=== PATIENT | female | born 1950 | race Caucasian/White ===

== ENCOUNTER 2016-12-09 12:24 | Inpatient (IN) | payer BC ==
[2016-12-09] MEDS ORDERED: SODIUM CHLORIDE 0.9% 1,000 ML IV STA ×2 (13:22)
[2016-12-09] MEDS ORDERED: ONDANSETRON 4 MG/2 ML VIAL IVP STA (13:22)
--- NOTE | 2016-12-09 13:42 | ED ---
Nausea/Vomiting/Diarrhea HPI - General Chief complaint: Nausea/Vomiting/Diarrhea Stated complaint: dehydrated Time Seen by Provider: 12/09/16 13:15 Source: patient, family Mode of arrival: wheelchair Limitations: no limitations - History of Present Illness Initial comments: This 66-year-old white female presents complaining of nausea as well as vomiting. She states that she cannot swallow, eat, or drink. This is been present for approximately 5 days. She does feel dehydrated. She currently is undergoing treatment for cancer. She was diagnosed with breast cancer possibly 6 years ago. She developed some bone metastases over the past year. She is undergone chemotherapy and is currently undergoing radiation therapy. She has had similar symptoms twice in the past. She's had 3 EGDs. She states that one of them was done here and the others were done at [facility]. She states that they had a hard time passing the scope at [facility]. She had radiation therapy just this morning. She denies any abdominal pain or distention, fever, or chills. He cancer may have spread near her pancreas as well. She tried Zofran from home without any relief. No other complaints or modifying factors. - Related Data Home Medications Medication Instructions Recorded Confirmed Dexamethasone [Dexamethasone 2 mg PO BID 12/09/16 12/09/16 Intensol] Dexamethasone [Dexamethasone 10 mg PO QAM 12/09/16 12/09/16 Intensol] Ondansetron [Zofran ODT] 8 mg PO Q8HR PRN 12/09/16 12/09/16 Allergies Allergy/AdvReac Type Severity Reaction Status Date / Time acyclovir AdvReac Swelling Verified 12/09/16 12:25 morphine AdvReac Nausea & Verified 12/09/16 12:25 Vomiting sulfamethazine AdvReac Anaphylaxis Verified 12/09/16 12:25 Review of Systems ROS Statement: Those systems with pertinent positive or pertinent negative responses have been documented in the HPI. ROS Other: All systems not noted in ROS Statement are negative. Past Medical History Past Medical History: Cancer Additional Past Medical History / Comment(s): BREAST CA WITH BONE METS, SHINGLES History of Any Multi-Drug Resistant Organisms: None Reported Additional Past Surgical History / Comment(s): LEFT MASTECTOMY Past Anesthesia/Blood Transfusion Reactions: No Reported Reaction Past Psychological History: No Psychological Hx Reported Smoking Status: Never smoker Past Alcohol Use History: None Reported Past Drug Use History: None Reported - Past Family History Mother Additional Family Medical History / Comment(s): Has one kidney Father Family Medical History: Myocardial Infarction ([place]) General Exam - General Exam Comments Initial Comments: GENERAL: The patient is well nourished and well hydrated. VITAL SIGNS: Heart rate, blood pressure, respiratory rate reviewed as recorded in nurse's notes. EYES: Pupils are round and reactive. Extraocular movements are intact. No conjunctival / lid redness or swelling. There may be some slight icterus present. ENT: No external evidence of injury, swelling, or ecchymosis. Airway is patent. Throat is clear. Mucous membranes are dry. NECK: Nontender. No swelling or evidence of injury. No subcutaneous emphysema. Trachea is midline. No thyroid mass. HEART: Regular rate and rhythm. Good peripheral pulses. LUNGS/CHEST: Breath sounds clear and equal bilaterally. No rales, rhonchi, or wheezes. No ecchymosis, subcutaneous emphysema, or tenderness. Medical large is present in the right upper chest. ABDOMEN: Abdomen soft without tenderness. No palpable masses or organomegaly. No peritoneal signs. No abdominal wall swelling or ecchymosis. EXTREMITIES: No extremity tenderness. Normal muscle tone and function. No thoracolumbar tenderness. NEUROLOGIC: Sensation is grossly intact. Cranial nerve exam reveals face is symmetrical, tongue is midline, speech is clear. SKIN: No abrasions or ecchymosis is noted. No induration or masses noted. Patient appears somewhat pale with possible mild jaundice. PSYCHIATRIC: Alert and oriented. Appropriate behavior and judgment. Limitations: no limitations Course Vital Signs 12/09/16 12/09/16 12:26 13:15 Temperature 97.1 F L Pulse Rate 111 H 113 H Respiratory 16 14 Rate Blood Pressure 127/66 113/60 O2 Sat by Pulse 98 96 Oximetry Medical Decision Making - Medical Decision Making The patient was seen and examined. All diagnostics were reviewed. IV hydration therapy is started and she receives 8 mg of Zofran as well. The EKG is done and shows a sinus tachycardia at a rate of 111. There is some nonspecific lateral ST-T wave changes noted. The VA interval is 144, QRS duration is 72, and the QTc interval is 476. The labs came back showing multiple abnormalities including a severe elevation of the pancreatic enzymes. Lipase was 4458. The bilirubin also is significantly elevated at 8.7. The alk phos is also elevated. The creatinine is mildly elevated. She is mildly dehydrated with a CO2 of 19. Old records were reviewed but there is not much in regard to definitive pathology in regards to her pancreas. They do relate that there was a mass in or around the pancreas at one point but they thought that this was improving. It is felt as though she benefit from admission to the hospital for further subspecialty consultations and further workup. She is feeling improved on recheck. She denies any abdominal pain or need for any pain medications. The case is discussed with Dr. Chavez and he is agreeable to admission with an oncology consult. - Lab Data Result diagrams: 12/09/16 13:30 12/09/16 13:30 Lab Results 12/09/16 12/09/16 12/09/16 Range/Units 13:30 13:30 13:30 WBC 10.1 (3.8-10.6) k/uL RBC 3.42 L (3.80-5.40) m/uL Hgb 11.8 (11.4-16.0) gm/dL Hct 36.2 (34.0-46.0) % MCV 105.9 H (80.0-100.0) fL MCH 34.6 (25.0-35.0) pg MCHC 32.7 (31.0-37.0) g/dL RDW 15.6 H (11.5-15.5) % Plt Count 401 (150-450) k/uL Neutrophils % 84 % Lymphocytes % 6 % Monocytes % 8 % Eosinophils % 0 % Basophils % 0 % Neutrophils # 8.4 H (1.3-7.7) k/uL Lymphocytes # 0.6 L (1.0-4.8) k/uL Monocytes # 0.8 (0-1.0) k/uL Eosinophils # 0.0 (0-0.7) k/uL Basophils # 0.0 (0-0.2) k/uL Macrocytosis Moderate PT 11.6 (9.0-12.0) sec INR 1.2 (<1.1) APTT 24.1 (22.0-30.0) sec Sodium 133 L (137-145) mmol/L Potassium 3.6 (3.5-5.1) mmol/L Chloride 96 L (98-107) mmol/L Carbon Dioxide 19 L (22-30) mmol/L Anion Gap 18 mmol/L BUN 22 H (7-17) mg/dL Creatinine 1.29 H (0.52-1.04) mg/dL Est GFR (MDRD) Af Amer 50 (>60 ml/min/1.73 sqM) Est GFR (MDRD) Non-Af 42 (>60 ml/min/1.73 sqM) Glucose 98 (74-99) mg/dL Calcium 7.5 L (8.4-10.2) mg/dL Total Bilirubin 8.7 H (0.2-1.3) mg/dL AST 186 H (14-36) U/L ALT 128 H (9-52) U/L Alkaline Phosphatase 698 H (38-126) U/L Total Protein 6.4 (6.3-8.2) g/dL Albumin 3.5 (3.5-5.0) g/dL Amylase 783 H* (30-110) U/L Lipase 4458 H (23-300) U/L Disposition Clinical Impression: Pancreatitis, Hepatic failure, Intractable nausea and vomiting, Dehydration, Bone metastases, Breast cancer, Acute kidney injury, Dysphagia Disposition: ADMITTED IP TO THIS [facility] Condition: Fair Time of Disposition: 14:44 Decision Date: 12/09/16 Decision Time: 14:45
[2016-12-09 13:46] LABS: Basophils % (A) 0 %; CH 34.6; CHCM 32.9; Eosinophils % (A) 0 %; HCT 36.2 % (34.0-46.0); HDW 2.47; HGB 11.8 gm/dL (11.4-16.0); Luc # (Auto) 0.13; Luc % (Auto) 1; Lymphocytes # (A) 0.6 k/uL (1.0-4.8); Lymphocytes % (A) 6 %; MCH 34.6 pg (25.0-35.0); MCHC 32.7 g/dL (31.0-37.0); MCV 105.9 fL (80.0-100.0); Macrocytosis Moderate; Mean Platelet Volume 7.6; Monocytes # (A) 0.8 k/uL (0-1.0); Monocytes % (A) 8 %; Neutrophils # (A) 8.4 k/uL (1.3-7.7); Neutrophils % (A) 84 %; RBC 3.42 m/uL (3.80-5.40); RDW 15.6 % (11.5-15.5); WBC 10.1 k/uL (3.8-10.6); WBC (Perox) 10.48
[2016-12-09 13:53] LABS: Calcium 7.5 mg/dL (8.4-10.2); Potassium 3.6 mmol/L (3.5-5.1); Total Bilirubin 8.7 mg/dL (0.2-1.3); Total Protein 6.4 g/dL (6.3-8.2)
[2016-12-09 13:56] LABS: INR 1.2 (<1.1); Partial Thromboplastin Time 24.1 sec (22.0-30.0); Prothrombin Time 11.6 sec (9.0-12.0)
[2016-12-09] MEDS ORDERED: NALOXONE 0.4 MG/ML 1 ML VIAL IV PRN (14:47)
[2016-12-09] MEDS ORDERED: RX INFO: IV CONTRAST WAS GIVEN 1 EACH MISC MISCELLANE PRN (14:51)
--- NOTE | 2016-12-09 15:29 | CT ---
EXAMINATION TYPE: CT abdomen pelvis wo con DATE OF EXAM: 12/09/2016 3:14 PM COMPARISON: NONE INDICATION: Pt states of vomiting. Hx of bone CA. DLP: 491 mGycm, Automated exposure control for dose reduction was used. CONTRAST: No IV contrast Study performed without Oral Contrast TECHNIQUE: Axial images were obtained from above the diaphragm to the pubic rami in the axial plane a t 5 mm thick sections. Reconstructed images are reviewed on the computer in the coronal plane. FINDINGS: Limited CT sections are obtained the lung bases. Small bilateral pleural effusions are present.. 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 CT ABDOMEN: Ascites is present within the abdomen. Liver: Multiple dilated bile ducts are present within the liver. Ascites is adjacent to the liver. Spleen: Normal. Ascites is adjacent to the spleen. Pancreas: Pancreatic duct is dilated discrete mass at the head of the pancreas is not identified. Adrenal glands: The adrenal glands are normal. Gallbladder: Prominent. Kidneys: No masses are evident. There is a right hydronephrosis. There may be a mild left hydronephro sis. No cysts are present. Aorta: Vascular calcification is within the aorta. Inferior vena cava: Normal. CT PELVIS: Loops of bowel within the abdomen and pelvis are normal. Appendix: Not visualized Urinary bladder: Normal. This is decompressed and somewhat limited evaluation. Genitourinary structures: Uterus is normal. Adnexal regions are clear. Osseous structures: Sclerotic areas are within the right ilium and within the right femur. Punctate s clerotic areas within the proximal left intertrochanteric region. There is a sclerotic vertebral body T12. Additional small sclerotic areas are within the lumbar vertebral bodies compatible with bone me tastases. Some sclerosis may be within the lower thoracic spine. Left rib 11 has increased density co mpatible sclerotic metastasis. IMPRESSIONS: 1. Small bilateral pleural effusions. 2. Ascites throughout the abdomen. 3. Multiple sclerotic metastases. 4. Right hydronephrosis and hydroureter. 5. Biliary dilatation and pancreatic duct dilatation. Discrete abnormalities not identified within th e pancreas. Additional workup however is recommended.
[2016-12-09] MEDS ORDERED: DEXAMETHASONE 2 MG TAB PO SCH (16:00)
[2016-12-09] MEDS: PANTOPRAZOLE 40 MG/10 ML VIAL IV SCH (17:03)
[2016-12-09 17:27] LABS: Bilirubin, Delta 3.3 mg/dL (0.0-0.2); Total Bilirubin 8.6 mg/dL (0.2-1.3)
[2016-12-09] MEDS: ONDANSETRON 4 MG/2 ML VIAL IVP PRN (18:39)
[2016-12-09] MEDS: DEXAMETHASONE SOD PHOSPHATE 4 MG/ML 1 ML VIAL IV SCH ×2 (18:39→23:58)
[2016-12-09 18:54] LABS: Appearance,Urine Cloudy (Clear); Bacteria,Urine Rare /hpf; Bilirubin,Urine 2+ (Negative); Glucose,Urine (UA) Negative (Negative); Ketones,Urine 2+ (Negative); Leukocyte Esterase,Urine Large (Negative); Mucus,Urine Few /hpf; Nitrite,Urine Positive (Negative); PH, Urine 5.5 (5.0-8.0); Particle Count 21216; Protein,Urine 1+ (Negative); RBC,Urine 3 /hpf (0-5); Specific Gravity,Urine 1.019 (1.001-1.035); Squamous Epithelial Cell,Urine 5 /hpf (0-4); UA Billing (MACRO vs. MICRO) MICRO; Urobilinogen,Urine <2.0 mg/dL (<2.0); WBC,Urine 170 /hpf (0-5)
[2016-12-09] MEDS: ACETAMINOPHEN IV (For NPO) 1,000 MG in EMPTY BAG 1 BAG IVPB PRN (22:56)
[2016-12-10] MEDS: SODIUM CHLORIDE 0.9% 1,000 ML IV SCH ×3 (00:01→20:57)
[2016-12-10] MEDS: DEXAMETHASONE SOD PHOSPHATE 4 MG/ML 1 ML VIAL IV SCH ×4 (06:12→23:55)
[2016-12-10 06:33] LABS: Basophils % (A) 0 %; CHCM 31.2; Eosinophils % (A) 0 %; HCT 32.3 % (34.0-46.0); HGB 10.3 gm/dL (11.4-16.0); Hypochromasia Slight; Luc # (Auto) 0.02; Luc % (Auto) 0; Lymphocytes # (A) 0.2 k/uL (1.0-4.8); Lymphocytes % (A) 4 %; MCH 34.9 pg (25.0-35.0); MCHC 31.9 g/dL (31.0-37.0); MCV 109.3 fL (80.0-100.0); Macrocytosis Marked; Mean Platelet Volume 6.9; Monocytes # (A) 0.2 k/uL (0-1.0); Monocytes % (A) 3 %; Neutrophils # (A) 6.2 k/uL (1.3-7.7); Neutrophils % (A) 93 %; RBC 2.96 m/uL (3.80-5.40); RDW 15.9 % (11.5-15.5); WBC 6.6 k/uL (3.8-10.6); WBC (Perox) 6.88
[2016-12-10 06:51] LABS: Calcium 6.7 mg/dL (8.4-10.2); Total Protein 5.9 g/dL (6.3-8.2)
[2016-12-10] MEDS ORDERED: DEXAMETHASONE 2 MG TAB PO SCH (09:00)
[2016-12-10] MEDS: PANTOPRAZOLE 40 MG/10 ML VIAL IV SCH (09:12)
[2016-12-10] MEDS: ENOXAPARIN 40 MG/0.4 ML SYRINGE SQ SCH (09:12)
--- NOTE | 2016-12-10 16:08 | P.CONS ---
History of Present Illness - Reason for Consult Consult date: 12/10/16 metastatic breast cancer Requesting physician: Nathaniel Kelsey - Chief Complaint dysphagia, anorexic, dehydration - History of Present Illness Pt is a very pleasant female pt last seen by Dr. Coe Nov 2014. She was diagnosed with stage IIIC, ER/SD+, HER2/CHIDI negative, left breast cancer in March 2010.She had a left mastectomy and axillary nodes dissection. She received adjuvant systemic treatment per [id number]-B46 trial and had 6 cycles of cytoxan, adriamycin and taxol and completed that in August 2010. She had adjuvant radiation therapy to left chest wall. She was started on arimidex 11/2010. Mammogram 08/22/2012 was normal, bone density in 07/2012 showed osteopenia and osteoporosis in the pelvis. Mammograms 10/11 and 12/13 were negative, bone density done on 12/11/2014 revealed persistent osteopenia. Pt then moved to [place], then moved back last year but has been kirstie treated at [facility]. She is not sure of all the treatments she has had but most recently she has been on weekly chemo (when prompted she did seem to be familiar with taxol), last dose about 1 mo ago. She was evaluated at [facility] in the last 1-2 weeks and it sounds as thoug that is when she was diagnosed with brain mets. She wants her treatment closer to home so she was seen by Rad Onc to start WBRT and started Wednesday. She was having dysphagia that was preventing her from taking meds and even managing her own secretions, also noted was left ptosis without vision loss. Due to concerns for dehydration she was sent from radiation to the hospital for admission, she has significantly elevated amylase and lipase without signs of symptoms of pancreatitis, no nausea or abd pain. Pt is comfortable this AM, she did tolerate ice chips, she states that she is swallowing much better, no spitting up of oral secretions. Review of Systems All systems: negative Constitutional: Reports as per HPI Past Medical History Past Medical History: Cancer Additional Past Medical History / Comment(s): BREAST CA WITH BONE METS- PT STATED SHE HAD CHEMO 3 OR 4 WEEKS AGO NOT SURE WHEN DUE NEXT, AND HAD FIRST RADITATION [place] 12-09-16, SHINGLES MAY 2016 History of Any Multi-Drug Resistant Organisms: None Reported Additional Past Surgical History / Comment(s): LEFT MASTECTOMY, POWER PORT IMPLANTED, multiple esophageal tests to see about stent placements per patient [facility] said they could not put one in due to severity esophagus narrowing Past Anesthesia/Blood Transfusion Reactions: No Reported Reaction Past Psychological History: No Psychological Hx Reported Smoking Status: Never smoker Past Alcohol Use History: None Reported Past Drug Use History: None Reported - Past Family History Mother Additional Family Medical History / Comment(s): Has one kidney Father Family Medical History: Myocardial Infarction ([place]) Medications and Allergies Home Medications Medication Instructions Recorded Confirmed Type Ondansetron [Zofran ODT] 8 mg PO Q8HR PRN 12/09/16 12/09/16 History Allergies Allergy/AdvReac Type Severity Reaction Status Date / Time acyclovir AdvReac Swelling Verified 12/09/16 12:25 morphine AdvReac Nausea & Verified 12/09/16 12:25 Vomiting sulfamethazine AdvReac Anaphylaxis Verified 12/09/16 12:25 EGGS AdvReac Diarrhea Uncoded 12/09/16 19:01 Physical Exam Vitals: Vital Signs Temp Pulse Resp BP Pulse Ox 12/10/16 07:00 97.7 F 110 H 16 124/82 96 12/09/16 23:00 97.0 F L 109 H 16 103/61 95 12/09/16 16:49 97.1 F L 102 H 18 110/62 98 Intake and Output 12/09/16 12/10/16 12/10/16 22:59 06:59 14:59 Intake Total 400 1150 Balance 400 1150 Intake: IV 400 1150 Sodium Chloride 0.9% 1, 400 1100 000 ml @ 100 mls/hr IV . Q10H STA Rx#:[id number] cefTRIAXone 1,000 mg In 50 Sodium Chloride 0.9% 50 ml @ 100 mls/hr IVPB Q24HR STEPHANIE Rx#:[id number] Other: Voiding Method Toilet # Voids 1 Weight 47.627 kg Patient Weight 12/11/16 06:59 Weight 47.627 kg - Constitutional General appearance: average body habitus, cooperative, no acute distress - EENT Eyes: ptosis (left eye) ENT: no hard of hearing, hearing grossly normal, no NA/AT, normal oropharynx, no other, no pharyngeal erythema, no thrush, no tonsillar exudates, no tonsillar swelling - Neck Neck: no lymphadenopathy - Respiratory Respiratory: bilateral: CTA - Cardiovascular Rhythm: regular Heart sounds: normal: S1, S2 leg Peripheral Edema: bilateral: None - Gastrointestinal General gastrointestinal: no absent bowel sounds, no decreased bowel sounds, no distended, no hepatomegaly, no hyperactive bowel sounds, normal bowel sounds, no organomegaly, no rigid, no scaphoid, soft, no splenomegaly, no tenderness, no umbilical hernia, no ventral hernia - Integumentary Integumentary: pale - Musculoskeletal Musculoskeletal: strength equal bilaterally - Psychiatric Psychiatric: A&O x's 3, appropriate affect, intact judgment & insight Results CBC & Chem 7: 12/10/16 06:10 12/10/16 06:10 Labs: Abnormal Lab Results - Last 24 Hours (Table) 12/09/16 12/10/16 12/10/16 Range/Units 18:10 06:10 06:10 RBC 2.96 L (3.80-5.40) m/uL Hgb 10.3 L (11.4-16.0) gm/dL Hct 32.3 L (34.0-46.0) % MCV 109.3 H (80.0-100.0) fL RDW 15.9 H (11.5-15.5) % Lymphocytes # 0.2 L (1.0-4.8) k/uL Carbon Dioxide 13 L (22-30) mmol/L BUN 26 H (7-17) mg/dL Creatinine 1.34 H (0.52-1.04) mg/dL Glucose 109 H (74-99) mg/dL Calcium 6.7 L (8.4-10.2) mg/dL Total Bilirubin 8.0 H (0.2-1.3) mg/dL AST 155 H (14-36) U/L ALT 108 H (9-52) U/L Alkaline Phosphatase 561 H (38-126) U/L Total Protein 5.9 L (6.3-8.2) g/dL Albumin 3.2 L (3.5-5.0) g/dL Amylase 687 H* (30-110) U/L Lipase 3256 H (23-300) U/L Urine Appearance Cloudy H (Clear) Urine Protein 1+ H (Negative) Urine Ketones 2+ H (Negative) Urine Nitrate Positive H (Negative) Urine Bilirubin 2+ H (Negative) Ur Leukocyte Esterase Large H (Negative) Urine WBC 170 H (0-5) /hpf Ur Squamous Epith Cells 5 H (0-4) /hpf Urine Bacteria Rare H (None) /hpf Hyaline Casts 3 H (0-2) /lpf Urine Mucus Few H (None) /hpf CT scan - abdomen: report reviewed CT scan - pelvis: report reviewed Assessment and Plan (1) Metastatic breast cancer Narrative/Plan: [facility] will be contacted for pt history of treatment for the last year as we will need to review before planning any systemic treatment. Pt cannot have chemo while on radiation at this time anyway. She will have a follow up appt for after she completes radiation. Status: Chronic (2) Brain metastases Narrative/Plan: Cont radiation under the care of Dr. Nicholson. Steroids are IV for now and will continue with eventual taper after radiation complete. Swallow evalu ordered as pt is stating less dysphagia. Will convert to oral once pt passes swallow eval, will consider ice chips/clear fluids if ok. Status: Chronic (3) Acute kidney injury Status: Acute (4) Pancreatitis Narrative/Plan: Asymptomatic Status: Acute (5) Hepatic failure Status: Acute Plan: Pt believes that there is tumor in the abdomen, [facility] paperwork has been sent and will be reviewed. GI and Urology consults may be appropriate for evaluation of pt, procedures to relive mechanical obstruction from malignancy may be necessary. Will review [facility] notes, further recommendations to follow.
--- NOTE | 2016-12-10 16:13 | P.HPIM ---
History of Present Illness H&P Date: 12/10/16 Chief Complaint: Dysphagia 65-year-old female with history of breast cancer with metastases to the bones and recent diagnosis of metastases to the brain comes in the hospital with complains of dysphagia. Patient was recently evaluated at [facility] was told regarding her brain metastases was deferred to have radiation therapy. Patient underwent radiation therapy today. Patient underwent EGD recently without any acute obstruction. Over the last few days patient was noted to have some dysphagia which she states she is not able to tolerate even liquids and solids. Patient has been on steroids for treatment of vasogenic edema up for metastatic lesions. Patient denies having any headaches chills, nausea, abdominal pain, diarrhea. Patient does have a left droopy eye and gets tearful multiple times during our conversation. Review of Systems All systems: negative (As noted in HPI) Past Medical History Past Medical History: Cancer Additional Past Medical History / Comment(s): BREAST CA WITH BONE METS- PT STATED SHE HAD CHEMO 3 OR 4 WEEKS AGO NOT SURE WHEN DUE NEXT, AND HAD FIRST RADITATION [place] 12-09-16, [place] MAY 2016 History of Any Multi-Drug Resistant Organisms: None Reported Additional Past Surgical History / Comment(s): LEFT MASTECTOMY, POWER PORT IMPLANTED, multiple esophageal tests to see about stent placements per patient [facility] said they could not put one in due to severity esophagus narrowing Past Anesthesia/Blood Transfusion Reactions: No Reported Reaction Past Psychological History: No Psychological Hx Reported Smoking Status: Never smoker Past Alcohol Use History: None Reported Past Drug Use History: None Reported - Past Family History Mother Additional Family Medical History / Comment(s): Has one kidney Father Family Medical History: Myocardial Infarction ([place]) Medications and Allergies Home Medications Medication Instructions Recorded Confirmed Type Ondansetron [Zofran ODT] 8 mg PO Q8HR PRN 12/09/16 12/09/16 History Allergies Allergy/AdvReac Type Severity Reaction Status Date / Time acyclovir AdvReac Swelling Verified 12/09/16 12:25 morphine AdvReac Nausea & Verified 12/09/16 12:25 Vomiting sulfamethazine AdvReac Anaphylaxis Verified 12/09/16 12:25 EGGS AdvReac Diarrhea Uncoded 12/09/16 19:01 Physical Exam Vitals: Vital Signs Temp Pulse Resp BP Pulse Ox 12/10/16 15:00 107 H 18 128/73 95 12/10/16 07:00 97.7 F 110 H 16 124/82 96 12/09/16 23:00 97.0 F L 109 H 16 103/61 95 12/09/16 16:49 97.1 F L 102 H 18 110/62 98 Intake and Output 12/10/16 12/10/16 12/10/16 06:59 14:59 22:59 Intake Total 1150 1330 Balance 1150 1330 Intake: IV 1150 800 Sodium Chloride 0.9% 1, 1100 800 000 ml @ 100 mls/hr IV . Q10H STA Rx#:[id number] cefTRIAXone 1,000 mg In 50 Sodium Chloride 0.9% 50 ml @ 100 mls/hr IVPB Q24HR STEPHANIE Rx#:[id number] Intake, IV Titration 50 Amount cefTRIAXone 1,000 mg In 50 Sodium Chloride 0.9% 50 ml @ 100 mls/hr IVPB Q24HR STEPHANIE Rx#:[id number] Oral 480 Other: Voiding Method Toilet Toilet # Voids 4 Weight 47.627 kg Patient Weight 12/11/16 06:59 Weight 47.627 kg Gen Appearance alert oriented 3 in no distress Lungs currently clear to auscultation Mouth thrush appreciated Abdomen is soft nontender no organomegaly Neurologically moves all 4 activities. Left-sided facial droop is appreciated. Psychiatric patient gets tearful multiple times during my examination Heart regular rate and rhythm no murmurs appreciated Results CBC & Chem 7: 12/10/16 06:10 12/10/16 06:10 Labs: Abnormal Lab Results - Last 24 Hours (Table) 12/09/16 12/10/16 12/10/16 Range/Units 18:10 06:10 06:10 RBC 2.96 L (3.80-5.40) m/uL Hgb 10.3 L (11.4-16.0) gm/dL Hct 32.3 L (34.0-46.0) % MCV 109.3 H (80.0-100.0) fL RDW 15.9 H (11.5-15.5) % Lymphocytes # 0.2 L (1.0-4.8) k/uL Carbon Dioxide 13 L (22-30) mmol/L BUN 26 H (7-17) mg/dL Creatinine 1.34 H (0.52-1.04) mg/dL Glucose 109 H (74-99) mg/dL Calcium 6.7 L (8.4-10.2) mg/dL Total Bilirubin 8.0 H (0.2-1.3) mg/dL AST 155 H (14-36) U/L ALT 108 H (9-52) U/L Alkaline Phosphatase 561 H (38-126) U/L Total Protein 5.9 L (6.3-8.2) g/dL Albumin 3.2 L (3.5-5.0) g/dL Amylase 687 H* (30-110) U/L Lipase 3256 H (23-300) U/L Urine Appearance Cloudy H (Clear) Urine Protein 1+ H (Negative) Urine Ketones 2+ H (Negative) Urine Nitrate Positive H (Negative) Urine Bilirubin 2+ H (Negative) Ur Leukocyte Esterase Large H (Negative) Urine WBC 170 H (0-5) /hpf Ur Squamous Epith Cells 5 H (0-4) /hpf Urine Bacteria Rare H (None) /hpf Hyaline Casts 3 H (0-2) /lpf Urine Mucus Few H (None) /hpf Thrombosis Risk Factor Assmnt - Choose All That Apply Any of the Below Risk Factors Present?: Yes Other Risk Factors: Yes Each Risk Factor Represents 2 Points: Age 61-74 years Other congenital or acquired thrombophilia - If yes, enter type in comment: No Thrombosis Risk Factor Assessment Total Risk Factor Score: 2 Thrombosis Risk Factor Assessment Level: Low Risk Assessment and Plan Plan: #1 metastatic breast cancer #2 dysphagia #3 acute pancreatitis likely obstructive in nature #4 oral thrush with likely esophagitis from Melinda albicans #5 left sided facial droop likely secondary to lesion Plan Patient underwent radiation. On IV steroids. Diflucan 200 mg IV piggyback will be started. We'll trend enzymes if patient's bilirubin increases there might be a role for ERCP. There is no overt mass noted at the head of the pancreas. Continue ongoing care
[2016-12-10] MEDS: ACETAMINOPHEN IV (For NPO) 1,000 MG in EMPTY BAG 1 BAG IVPB PRN (17:24)
[2016-12-10] MEDS: FLUCONAZOLE IN NACL,ISO-OSM 200 MG in SALINE 1 100ML.BAG IVPB SCH (18:11)
[2016-12-10] MEDS: ONDANSETRON 4 MG/2 ML VIAL IVP PRN (20:33)
[2016-12-11] MEDS: ONDANSETRON 4 MG/2 ML VIAL IVP PRN ×6 (01:38→23:21)
[2016-12-11] MEDS: DEXAMETHASONE SOD PHOSPHATE 4 MG/ML 1 ML VIAL IV SCH ×4 (05:39→23:21)
[2016-12-11] MEDS: SODIUM CHLORIDE 0.9% 1,000 ML IV SCH (05:43)
[2016-12-11] MEDS: PANTOPRAZOLE 40 MG/10 ML VIAL IV SCH (08:54)
[2016-12-11] MEDS: ENOXAPARIN 40 MG/0.4 ML SYRINGE SQ SCH (08:54)
--- NOTE | 2016-12-11 10:07 | P.CONS ---
History of Present Illness - Reason for Consult Consult date: 12/11/16 ERCP evaluation Requesting physician: Arnol Chavez - History of Present Illness 66-year-old female with past medical history of metastatic breast cancer to bone and brain with recent radiation treatment at [facility] presents with worsening nausea vomiting with elevated transaminases,hyperbilirubinemia/ jaundice. She has had multiple EGDs at [facility] without intervention. Consultation requested for ERCP evaluation. Computed tomography scan abdomen and pelvis reported ascites without gallstones. Dilated pancreatic duct as well as intrahepatic biliary ductal dilatation without discrete pancreatic mass. Patient did not notice herself to be yello/jaundice or passing dark-colored urine until she was admitted. Denies acholic stools. Admission lipase 4458 currently 3256. Amylase 783 currently 687. Despite elevated pancreatic enzymes she is without abdominal pain. Denies fever or chills. No history of pancreatitis or hepatitis. Total bilirubin 8.6 currently 8.0. AST 186 currently 155. ALT 128 currently 108. Alkaline phosphatase 690 currently 561. Conjugated bilirubin 4.2. Unconjugated 1.1. When reviewing prior medical records liver chemistries within normal limits May 2016. Review of Systems All systems: negative (See HPI) Past Medical History Past Medical History: Cancer Additional Past Medical History / Comment(s): BREAST CA WITH BONE METS- PT STATED SHE HAD CHEMO 3 OR 4 WEEKS AGO NOT SURE WHEN DUE NEXT, AND HAD FIRST RADITATION [place] 12-09-16, SHINGLJAMEL MAY 2016 History of Any Multi-Drug Resistant Organisms: None Reported Additional Past Surgical History / Comment(s): LEFT MASTECTOMY, POWER PORT IMPLANTED, multiple esophageal tests to see about stent placements per patient [facility] said they could not put one in due to severity esophagus narrowing Past Anesthesia/Blood Transfusion Reactions: No Reported Reaction Past Psychological History: No Psychological Hx Reported Smoking Status: Never smoker Past Alcohol Use History: None Reported Past Drug Use History: None Reported - Past Family History Mother Additional Family Medical History / Comment(s): Has one kidney Father Family Medical History: Myocardial Infarction ([place]) Medications and Allergies Home Medications Medication Instructions Recorded Confirmed Type Ondansetron [Zofran ODT] 8 mg PO Q8HR PRN 12/09/16 12/09/16 History Allergies Allergy/AdvReac Type Severity Reaction Status Date / Time acyclovir AdvReac Swelling Verified 12/09/16 12:25 morphine AdvReac Nausea & Verified 12/09/16 12:25 Vomiting sulfamethazine AdvReac Anaphylaxis Verified 12/09/16 12:25 EGGS AdvReac Diarrhea Uncoded 12/09/16 19:01 Physical Exam Vitals: Vital Signs Temp Pulse Resp BP Pulse Ox 12/10/16 22:41 97 F L 106 H 18 129/80 95 12/10/16 15:00 107 H 18 128/73 95 Intake and Output 12/10/16 12/11/16 12/11/16 22:59 06:59 14:59 Intake Total 700 800 Balance 700 800 Intake: IV 400 Sodium Chloride 0.9% 1, 400 000 ml @ 100 mls/hr IV . Q10H STA Rx#:[id number] Intake, IV Titration 800 Amount Sodium Chloride 0.9% 1, 800 000 ml @ 100 mls/hr IV . Q10H STEPHANIE Rx#:[id number] Oral 300 Other: Voiding Method Toilet # Voids 1 1 General appearance: The patient is alert, oriented, in no acute distress. Jaundice. HET: Head is normocephalic and atraumatic. Hair thinly distributed sparse. Left eye with mild ptosis. Pupils are equal and reactive. Sclerae icterus. Oropharynx is clear without lesions. Neck: Supple without lymphadenopathy. Trachea midline. Heart: S1 S2. Regular rate and rhythm. Lungs: No crackles or wheezes are heard. Mediport. Abdomen: Soft, nontender, nondistended with bowel sounds. No peritoneal signs. No palpable organomegaly or masses. Extremities: Normal skin color and turgor. No cyanosis, rash, ulceration, clubbing, or edema. Radial and pedal pulses are 2/4 bilaterally. Neurological: No focal deficits. Strength and sensation are grossly intact. Results CBC & Chem 7: 12/10/16 06:10 12/10/16 06:10 CT scan - abdomen: report reviewed CT scan - pelvis: report reviewed (Reviewed by Dr. Roca) Assessment and Plan (1) Obstructive jaundice Narrative/Plan: 66-year-old female with metastatic breast cancer to bone and brain presents to intractable nausea vomiting elevated transaminases, pancreatic enzymes and jaundice consistent with obstructive jaundice and pancreatitis even though she is without abdominal pain. Etiology of pancreatitis and jaundice could be related to malignancy however stricture or gallstone cannot be entirely excluded. Computed tomography scan abdomen and pelvis reported dilated pancreatic and intrahepatic biliary ductal dilatation without cholelithiasis or discrete pancreatic mass. Status: Acute (2) Brain metastases Status: Chronic Plan: 1. For now supportive measures and allow pancreatic enzymes to improve. ERCP consideration once pancreatic enzymes have resolved. Will order MRCP tomorrow; based on results will decide if ERCP/PTC is necessary. 2. Hepatitis panel. 3. We'll follow with you. Thank you for this kind referral and the opportunity to participate in the care of your patient. This consultation was discussed with Dr. Duvall. The impression and plan of care have been directed as dictated.
[2016-12-11 11:27] LABS: Hepatitis B Surface Ag Index 0.05
[2016-12-11 11:32] LABS: Hepatitis B Core IgM Index 0.04
[2016-12-11 11:44] LABS: Hepatitis C Virus IgG Index 0.01
[2016-12-11 11:49] LABS: Hepatitis C Virus IgG Ab Negative (Negative)
[2016-12-11] MEDS: SALT AND SODA MOUTHWASH 1,000 ML PO SCH ×3 (13:41→23:21)
[2016-12-11] MEDS: FLUCONAZOLE IN NACL,ISO-OSM 200 MG in SALINE 1 100ML.BAG IVPB SCH (14:54)
[2016-12-11] MEDS: HYDROmorphone 1 MG/ML 1 ML SYRINGE IV PRN (14:56)
--- NOTE | 2016-12-11 16:35 | P.PN ---
Subjective Principal diagnosis: Dehydration, anorexia, intractable vomiting Pt is seen today in follow up. She is taking in very small amounts of fluids without choking but she continues to regurgitate. Pain is controlled with current analgesics, she is tolerating radiation. Objective - Vital Signs Vital signs: Vital Signs Temp 97.3 F L 12/11/16 07:00 Pulse 99 12/11/16 07:00 Resp 16 12/11/16 07:00 BP 136/65 12/11/16 07:00 Pulse Ox 94 L 12/11/16 07:00 Intake & Output 12/10/16 12/11/16 12/11/16 18:59 06:59 18:59 Intake Total 1380 1450 700 Balance 1380 1450 700 Weight 47.627 kg Intake: IV 800 400 Sodium Chloride 0.9% 1, 800 400 000 ml @ 100 mls/hr IV . Q10H STA Rx#:[id number] Intake, IV Titration 50 800 700 Amount Fluconazole in NaCl,Iso- 700 Osm 200 mg In Saline 1 100ml.bag @ 100 mls/hr IVPB DAILY@1600 STEPHANIE Rx#: [id number] Sodium Chloride 0.9% 1, 800 000 ml @ 100 mls/hr IV . Q10H STEPHANIE Rx#:[id number] cefTRIAXone 1,000 mg In 50 Sodium Chloride 0.9% 50 ml @ 100 mls/hr IVPB Q24HR STEPHANIE Rx#:[id number] Oral 530 250 Other: Voiding Method Toilet Toilet Toilet # Voids 4 1 3 - Constitutional Constitutional Comment(s): pt had just been medicated for pain, she was oriented, no distress General appearance: Present: average body habitus, cooperative, no acute distress - Labs CBC & Chem 7: 12/10/16 06:10 12/10/16 06:10 Assessment and Plan (1) Metastatic breast cancer Narrative/Plan: Paperwork from [facility] received and being reviewed, plans for chemotherapy after radiation complete. Status: Chronic (2) Brain metastases Narrative/Plan: Cont radiation under Dr. Nicholson Status: Chronic (3) Acute kidney injury Status: Acute (4) Pancreatitis Status: Acute (5) Hepatic failure Status: Acute Plan: Awaiting Urology evaluation. Case was discussed with Dr. Houser. Pt has had endoscopy 3 times in the past with no mechanical obstruction identified and ERCP with stenting was attempted but was unsuccessful. Recommendation is for PEG tube placement due to poor oral intake and central dysphagia. PEG tube placement was discussed with pt and she is interested in it.
[2016-12-11] MEDS: POLYETHYLENE GLYCOL 3350 17 GM POWD.PACK PO SCH (20:18)
[2016-12-12] MEDS: HYDROmorphone 1 MG/ML 1 ML SYRINGE IV PRN ×3 (00:40→22:20)
[2016-12-12] MEDS: SODIUM CHLORIDE 0.9% 1,000 ML IV SCH ×4 (01:58→21:32)
[2016-12-12] MEDS: DEXAMETHASONE SOD PHOSPHATE 4 MG/ML 1 ML VIAL IV SCH ×3 (06:18→17:28)
[2016-12-12 06:33] LABS: Anisocytosis Slight; CH 34.1; CHCM 31.6; HCT 30.4 % (34.0-46.0); HDW 2.39; HGB 9.7 gm/dL (11.4-16.0); MCH 34.8 pg (25.0-35.0); MCHC 32.1 g/dL (31.0-37.0); MCV 108.5 fL (80.0-100.0); Macrocytosis Marked; Mean Platelet Volume 7.2; WBC 7.9 k/uL (3.8-10.6)
[2016-12-12 06:48] LABS: Potassium 4.3 mmol/L (3.5-5.1)
[2016-12-12] MEDS: SALT AND SODA MOUTHWASH 1,000 ML PO SCH ×2 (08:21→15:45)
[2016-12-12] MEDS: PANTOPRAZOLE 40 MG/10 ML VIAL IV SCH (08:22)
[2016-12-12] MEDS: ENOXAPARIN 40 MG/0.4 ML SYRINGE SQ SCH (08:22)
[2016-12-12] MEDS: ONDANSETRON 4 MG/2 ML VIAL IVP PRN ×2 (08:31→15:43)
[2016-12-12 09:07] LABS: Amylase 737 U/L (30-110)
--- NOTE | 2016-12-12 11:43 | PN ---
DATE OF SERVICE: 12/12/2016 Patient is a 66-year-old pleasant lady who was diagnosed with metastatic breast cancer with brain and bone metastasis and was admitted to the hospital because of nausea, vomiting, not feeling well for the last few days duration. She was following at the [facility] for treatment of breast cancer. Apparently according to the patient she was diagnosed with jaundice and had ( ) studies at [facility] and was noted to have dilated biliary system. She had an ERCP attempted and a stent could not be placed. The patient does not no further plans in regards to biliary drainage at this time. However, during this hospitalization, she was also noted to have elevated bilirubin which was up to 8.6 and initial CAT scan did show dilated biliary system. She is scheduled for an M.R.C.P. today. She was also noted to have elevated amylase and lipase at 737 and 4714; however, she does not complain of any abdominal pain. She complains of dysphagia to solids for the last few days associated with intermittent passive regurgitation. However, she is able to maintain her nutrition and most of the symptoms are on an intermittent basis. She was evaluated by Dr. Duvall in May of 2016, had an upper endoscopy done that showed distal esophagus patent Schatzki's ring. While at [facility] too, she had another endoscopy done and according to her it was within normal limits. We were consulted for a PEG tube placement. On physical examination, she appears comfortable in no apparent distress. Vital signs are stable. Blood pressure is 124/87, pulse rate 103, temperature 97.9. HEENT examination unremarkable. Conjunctivae pink. Sclerae ( ). Oral cavity, no lesions. NECK: No JVD or lymph node enlargement. CHEST: Clear to auscultation. HEART: Regular rate and rhythm. ABDOMEN: Slightly distended, but it was soft, nontender. EXTREMITIES: No pedal edema. SKIN: No rashes. NEURO: She is alert and oriented x3. No focal deficits. Labs done today, WBC 7.9, hemoglobin 9.7, platelets are 299. T-bili is 8. AST 155, ALT 108, alkaline phosphatase 561. INR is 1.2. Amylase is 737, lipase is 4714. Hepatitis serologies for A, B, and C are negative. IMPRESSION: 1. Metastatic breast cancer to bone as well as to the brain, presently undergoing radiation therapy. Patient was being followed at [facility], but recently changed her doctors and follows with Dr. Coe who is contemplating chemotherapy in the near future. 2. Jaundice with elevated bili and alkaline phosphatase and CAT scan showing dilated biliary system, probably related to extensive compression from tumor metastasis. She had an attempted ERCP 2 weeks ago at [facility] and apparently was not successful and hence a CBD stent could not be placed. No further plans were made regarding biliary drainage. She is scheduled for an M.R.C.P. today and further decisions will be made based on M.R.C.P. results. 3. Intermittent dysphagia to solids for the last several months' duration. Upper endoscopy done 6 months ago at ( ) did not show any evidence of esophageal obstruction, possibly we are dealing with a component of esophageal motility disorder. However, she is able to maintain her nutrition and did not have any weight loss so far. She is not a candidate for a PEG tube placement because of the CAT scan showing moderate amount of ascites which is ( ) contraindication for any PEG tube placement because of the risk of infection. 4. New onset ascites, probably related to metastatic breast cancer ( ) that she has any underlying liver disease and recent CAT scan did not show any evidence of liver metastasis. 5. Elevated amylase and lipase consistent with pancreatitis, but patient is asymptomatic and clinically does not have any abdominal pain. RECOMMENDATIONS: 1. Await M.R.C.P. results. 2. After M.R.C.P. is done, I will start her on clear liquid diet and advance as tolerated to a soft diet. 3. I had a lengthy discussion with the patient that PEG tube cannot be placed at the present time because of ongoing ascites and this issue can be addressed at a later time based on her overall oral intake. 4. She is scheduled for an M.R.C.P. today and based on the results, further recommendations will be made. I will continue to follow the patient closely during her hospital stay. Thank you for this consultation.
[2016-12-12] MEDS ORDERED: CALCIUM GLUCONATE 1,000 MG in SODIUM CHLORIDE 0.9% 100 ML IVPB ONE (15:20)
--- NOTE | 2016-12-12 15:44 | P.PN ---
Subjective 65-year-old female with history of breast cancer with metastases to the bones and recent diagnosis of metastases to the brain comes in the hospital with complains of dysphagia. Patient was recently evaluated at [facility] was told regarding her brain metastases was deferred to have radiation therapy. Patient underwent radiation therapy today. Patient underwent EGD recently without any acute obstruction. Over the last few days patient was noted to have some dysphagia which she states she is not able to tolerate even liquids and solids. Patient has been on steroids for treatment of vasogenic edema up for metastatic lesions. Patient denies having any headaches chills, nausea, abdominal pain, diarrhea. Patient does have a left droopy eye and gets tearful multiple times during our conversation. 12/12/2016 Patient is currently angry as she was not able to have MRCP done due to the staff being not able to find prophylaxis.. Denies having any change in vision, headaches, chest pain, difficulty breathing, abdominal pain. Objective - Vital Signs Vital signs: Vital Signs Temp 97.6 F 12/12/16 07:00 Pulse 111 H 12/12/16 07:00 Resp 20 12/12/16 07:00 BP 134/80 12/12/16 07:00 Pulse Ox 94 L 12/12/16 07:00 Intake & Output 12/11/16 12/12/16 12/12/16 18:59 06:59 18:59 Intake Total 700 Balance 700 Intake: Intake, IV Titration 700 Amount Fluconazole in NaCl,Iso- 700 Osm 200 mg In Saline 1 100ml.bag @ 100 mls/hr IVPB DAILY@1600 [facility] Rx#: [id number] Other: Voiding Method Toilet Toilet Toilet # Voids 3 4 3 - Exam Appearance appears like less icteric Lungs good air entry clear to auscultation para graft heart S1-S2 heard regular rate and rhythm no murmurs appreciable Abdomen is soft nontender organomegaly Neurologically no focal motor or sensory deficits noted. Skin slight jaundice is appreciated Eyes there is a left-sided lid droop - Labs CBC & Chem 7: 12/12/16 06:00 12/12/16 06:00 Labs: Abnormal Lab Results - Last 24 Hours (Table) 12/12/16 12/12/16 12/12/16 Range/Units 06:00 06:00 06:00 RBC 2.80 L (3.80-5.40) m/uL Hgb 9.7 L (11.4-16.0) gm/dL Hct 30.4 L (34.0-46.0) % MCV 108.5 H (80.0-100.0) fL RDW 16.0 H (11.5-15.5) % Chloride 109 H (98-107) mmol/L Carbon Dioxide 17 L (22-30) mmol/L BUN 34 H (7-17) mg/dL Creatinine 1.29 H (0.52-1.04) mg/dL Glucose 165 H (74-99) mg/dL Calcium 6.0 L* (8.4-10.2) mg/dL Amylase 737 H* (30-110) U/L Lipase 4714 H (23-300) U/L Assessment and Plan Plan: #1 metastatic breast cancer with leptomeningeal involvement #2 dysphagia #3 acute pancreatitis likely obstructive in nature #4 oral thrush with likely esophagitis from Melinda albicans #5 left sided facial droop likely secondary to lesion Plan Continue IV steroid therapy. Patient is maintained on nystatin swish and swallow and Diflucan for oral thrush. Patient is tolerating some diet. Apparently PEG tube is not optional due to patient's ascites. Await MRCP results if patient does have an obstruction. ERCP will be attempted or a PTC drain can be placed. Patient does have hypocalcemia. We'll obtain an ionized calcium level. Patient be given a gram of calcium gluconate today. A PTh which will also be done.
[2016-12-12] MEDS: FLUCONAZOLE IN NACL,ISO-OSM 200 MG in SALINE 1 100ML.BAG IVPB SCH (16:41)
--- NOTE | 2016-12-12 17:49 | P.GSCN ---
History of Present Illness Consult date: 12/12/16 Reason for Consult: Right hydronephrosis Requesting physician: Driss Coe History of present illness: The patient is a 66-year-old white female with metastatic breast cancer. Recent computed tomography scan imaging has shown evidence of right hydroureteronephrosis. I'm consulted for this reason. She reports mild abdominal bloating but denies flank pain. She denies dysuria and hematuria. She has been treated for recurrent UTIs in the past. She had one episode of kidney stones in the remote past. Review of Systems - Constitutional Denies fever - Gastrointestinal Reports constipation, Reports nausea, Reports vomiting - Genitourinary Genitourinary: Denies hematuria Past Medical History Past Medical History: Cancer Additional Past Medical History / Comment(s): BREAST CA WITH BONE METS- PT STATED SHE HAD CHEMO 3 OR 4 WEEKS AGO NOT SURE WHEN DUE NEXT, AND HAD FIRST RADITATION [place] 12-09-16, SHING[place] MAY 2016 History of Any Multi-Drug Resistant Organisms: None Reported Additional Past Surgical History / Comment(s): LEFT MASTECTOMY, POWER PORT IMPLANTED, multiple esophageal tests to see about stent placements per patient [facility] said they could not put one in due to severity esophagus narrowing Past Anesthesia/Blood Transfusion Reactions: No Reported Reaction Past Psychological History: No Psychological Hx Reported Smoking Status: Never smoker Past Alcohol Use History: None Reported Past Drug Use History: None Reported - Past Family History Mother Additional Family Medical History / Comment(s): Has one kidney Father Family Medical History: Myocardial Infarction ([place]) Medications and Allergies Home Medications Medication Instructions Recorded Confirmed Type Ondansetron [Zofran ODT] 8 mg PO Q8HR PRN 12/09/16 12/09/16 History Allergies Allergy/AdvReac Type Severity Reaction Status Date / Time acyclovir AdvReac Swelling Verified 12/09/16 12:25 morphine AdvReac Nausea & Verified 12/09/16 12:25 Vomiting sulfamethazine AdvReac Anaphylaxis Verified 12/09/16 12:25 EGGS AdvReac Diarrhea Uncoded 12/09/16 19:01 Surgical - Exam Vital Signs Temp Pulse Resp BP Pulse Ox 97.1 F L 111 H 16 127/66 98 12/09/16 12:26 12/09/16 12:26 12/09/16 12:26 12/09/16 12:26 12/09/16 12:26 - General well developed, well nourished, no distress - Respiratory normal respiratory effort - Abdomen Abdomen: soft, non tender, no guarding, no rigid, no rebound - Psychiatric oriented to time, oriented to person, oriented to place, speech is normal, memory intact Results - Labs 12/12/16 06:00 12/12/16 06:00 Abnormal Lab Results - Last 24 Hours (Table) 12/12/16 12/12/16 12/12/16 Range/Units 06:00 06:00 06:00 RBC 2.80 L (3.80-5.40) m/uL Hgb 9.7 L (11.4-16.0) gm/dL Hct 30.4 L (34.0-46.0) % MCV 108.5 H (80.0-100.0) fL RDW 16.0 H (11.5-15.5) % Chloride 109 H (98-107) mmol/L Carbon Dioxide 17 L (22-30) mmol/L BUN 34 H (7-17) mg/dL Creatinine 1.29 H (0.52-1.04) mg/dL Glucose 165 H (74-99) mg/dL Calcium 6.0 L* (8.4-10.2) mg/dL Amylase 737 H* (30-110) U/L Lipase 4714 H (23-300) U/L Diabetes panel 12/12/16 Range/Units 06:00 Sodium 138 (137-145) mmol/L Potassium 4.3 (3.5-5.1) mmol/L Chloride 109 H (98-107) mmol/L Carbon Dioxide 17 L (22-30) mmol/L BUN 34 H (7-17) mg/dL Creatinine 1.29 H (0.52-1.04) mg/dL Glucose 165 H (74-99) mg/dL Calcium 6.0 L* (8.4-10.2) mg/dL Calcium panel 12/12/16 Range/Units 06:00 Calcium 6.0 L* (8.4-10.2) mg/dL Pituitary panel 12/12/16 Range/Units 06:00 Sodium 138 (137-145) mmol/L Potassium 4.3 (3.5-5.1) mmol/L Chloride 109 H (98-107) mmol/L Carbon Dioxide 17 L (22-30) mmol/L BUN 34 H (7-17) mg/dL Creatinine 1.29 H (0.52-1.04) mg/dL Glucose 165 H (74-99) mg/dL Calcium 6.0 L* (8.4-10.2) mg/dL Adrenal panel 12/12/16 Range/Units 06:00 Sodium 138 (137-145) mmol/L Potassium 4.3 (3.5-5.1) mmol/L Chloride 109 H (98-107) mmol/L Carbon Dioxide 17 L (22-30) mmol/L BUN 34 H (7-17) mg/dL Creatinine 1.29 H (0.52-1.04) mg/dL Glucose 165 H (74-99) mg/dL Calcium 6.0 L* (8.4-10.2) mg/dL - Imaging CT scan - abdomen: report reviewed, image reviewed Assessment and Plan (1) Hydronephrosis Status: Acute Plan: The patient is a 66-year-old white female with metastatic breast cancer. A computed tomography scan shows moderate to severe right hydroureteronephrosis, as well as mild left hydronephrosis. Fat planes in the pelvis are somewhat indistinct, that the hydronephrosis is due to metastases. She has mild renal insufficiency. We discussed placement of a ureteral stent to relieve the ureteral obstruction. This would likely prevent further deterioration in her renal function. However, stents sometimes become occluded in the face of malignancy, and some patients tolerate stents poorly. She will continue to receive treatment for her breast cancer, ureteral stent placement was certainly be reasonable. I intend to discuss this with Dr. Coe before making a final decision. Time with Patient: Greater than 30
[2016-12-12] MEDS: POLYETHYLENE GLYCOL 3350 17 GM POWD.PACK PO SCH (19:29)
[2016-12-13] MEDS: SALT AND SODA MOUTHWASH 1,000 ML PO SCH ×4 (00:07→23:51)
[2016-12-13] MEDS: DEXAMETHASONE SOD PHOSPHATE 4 MG/ML 1 ML VIAL IV SCH ×5 (00:07→23:47)
[2016-12-13] MEDS: ONDANSETRON 4 MG/2 ML VIAL IVP PRN ×2 (01:00→04:51)
[2016-12-13 06:33] LABS: Ionized Calcium 3.8 mg/dL (4.5-5.3)
[2016-12-13 06:56] LABS: Calcium 6.1 mg/dL (8.4-10.2)
[2016-12-13] MEDS ORDERED: CALCIUM GLUCONATE 1,000 MG in SODIUM CHLORIDE 0.9% 100 ML IVPB ONE ×2 (07:15→10:18)
[2016-12-13] MEDS: SODIUM CHLORIDE 0.9% 1,000 ML IV SCH ×2 (08:18→15:53)
[2016-12-13] MEDS: ENOXAPARIN 40 MG/0.4 ML SYRINGE SQ SCH (08:21)
[2016-12-13] MEDS: PANTOPRAZOLE 40 MG/10 ML VIAL IV SCH (08:21)
[2016-12-13] MEDS ORDERED: IBUPROFEN 400 MG TAB PO PRN (09:32)
[2016-12-13] MEDS ORDERED: ACETAMINOPHEN IV (For NPO) 1,000 MG in EMPTY BAG 1 BAG IVPB PRN (10:20)
--- NOTE | 2016-12-13 12:00 | P.PN ---
Subjective 65-year-old female with history of breast cancer with metastases to the bones and recent diagnosis of metastases to the brain comes in the hospital with complains of dysphagia. Patient was recently evaluated at [facility] was told regarding her brain metastases was deferred to have radiation therapy. Patient underwent radiation therapy today. Patient underwent EGD recently without any acute obstruction. Over the last few days patient was noted to have some dysphagia which she states she is not able to tolerate even liquids and solids. Patient has been on steroids for treatment of vasogenic edema up for metastatic lesions. Patient denies having any headaches chills, nausea, abdominal pain, diarrhea. Patient does have a left droopy eye and gets tearful multiple times during our conversation. 12/12/2016 Patient is currently angry as she was not able to have MRCP done due to the staff being not able to find prophylaxis.. Denies having any change in vision, headaches, chest pain, difficulty breathing, abdominal pain. 12/13/2016 Denies having any new complaints. Has not had a bowel movement in 3 days. No fevers, chills, nausea, vomiting. Patient was evaluated by urology a stent is a possibility for the right-sided hydroureteronephrosis. Objective - Vital Signs Vital signs: Vital Signs Temp 96.9 F L 12/13/16 07:00 Pulse 111 H 12/13/16 07:00 Resp 20 12/13/16 07:00 BP 136/90 12/13/16 07:00 Pulse Ox 97 12/13/16 07:00 Intake & Output 12/12/16 12/13/16 12/13/16 18:59 06:59 18:59 Intake Total 300 Balance 300 Intake: Intake, IV Titration 300 Amount Sodium Chloride 0.9% 1, 300 000 ml @ 100 mls/hr IV . Q10H [facility] Rx#:[id number] Other: Voiding Method Toilet Toilet Toilet # Voids 3 3 - Exam Appearance appears like less icteric Lungs good air entry clear to auscultation para graft heart S1-S2 heard regular rate and rhythm no murmurs appreciable Abdomen is soft nontender organomegaly Neurologically no focal motor or sensory deficits noted. Skin slight jaundice is appreciated Eyes there is a left-sided lid droop - Labs CBC & Chem 7: 12/12/16 06:00 12/12/16 06:00 Labs: Abnormal Lab Results - Last 24 Hours (Table) 12/13/16 Range/Units 06:18 Calcium 6.1 L* (8.4-10.2) mg/dL Ionized Calcium Renny 3.8 L (4.5-5.3) mg/dL Assessment and Plan Plan: #1 metastatic breast cancer with leptomeningeal involvement #2 dysphagia #3 acute pancreatitis likely obstructive in nature #4 oral thrush with likely esophagitis from Melinda albicans #5 left sided facial droop likely secondary to lesion #6 hypocalcemia likely secondary to pancreatitis from infiltration Plan Continue IV steroid therapy. Patient is maintained on nystatin swish and swallow and Diflucan for oral thrush. Patient is tolerating some diet. Apparently PEG tube is not optional due to patient's ascites. Await MRCP results if patient does have an obstruction. ERCP will be attempted or a PTC drain can be placed. Await PTH levels. Will replace calcium with 2 g of IV calcium gluconate. Repeat levels name. Patient is not symptomatic.
--- NOTE | 2016-12-13 12:03 | PN ---
DATE OF SERVICE: 12/13/2016 Patient is a 66-year-old pleasant lady with metastatic breast cancer and recently diagnosed brain mets. Currently, undergoing radiation therapy, admitted to the hospital for jaundice, elevated LFTs, nausea, vomiting, not feeling well. She recently underwent an ERCP with attempted stent placement at [facility], but apparently unsuccessful. In the meantime, she decided to change her oncologist and currently has been seeing Dr. Coe. Now she is admitted to the hospital with progressive jaundice. CT of the abdomen did show evidence of dilated common bile duct, probably related to extrinsic compression from her tumor; however, MRCP was ordered yesterday, but was not done because of her difficulty in IV access. This has been postponed until tomorrow. In the meantime, the patient has been complaining of some nausea, vomiting, and passive regurgitation. She is on a clear liquid diet, able to tolerate reasonably well. She is not a candidate for a PEG tube placement because of ongoing ascites. She denies any abdominal pain. Reports no fevers, chills, night sweats. On physical examination, she appears comfortable, in no apparent distress. Vitals signs are stable. Blood pressure is 123/94, pulse rate 103, temperature 97.7. HEENT examination unremarkable. Conjunctivae pink. Sclerae nonicteric. Oral cavity no lesions. NECK: No JVD or lymph node enlargement. Chest was clear to auscultation. HEART: Regular rate and rhythm. Abdomen soft. It was slightly distended. Bowel sounds are positive. There was no organomegaly. EXTREMITIES: No pedal edema. SKIN: No rashes. Yellowish discoloration of the skin noted. EXTREMITIES: No pedal edema. NEURO: Alert and oriented x3. No focal deficits Labs from today are still pending. Yesterday amylase 737, lipase was 4714. IMPRESSION: 1. Metastatic breast cancer with brain and bone metastases, undergoing radiation therapy. 2. Progressive jaundice with dilated biliary system, attempted ERCP at [facility] a week ago, was unsuccessful. Patient was scheduled for an MRCP yesterday, which was postponed until tomorrow because of inadequate IV access. 3. Elevated amylase and lipase but clinically does not have any symptoms of acute pancreatitis, most likely this could be related to infiltration of the tumor in the pancreas. 4. Dysphagia probably oropharyngeal in nature, slight esophageal dysmotility. Upper endoscopy done [address] Duvall did not show any evidence of esophageal stricture. RECOMMENDATIONS: 1. Await MRCP results which will be scheduled for tomorrow. 2. I did discuss with the patient regarding attempting another ERCP, but at this time, I would prefer to wait for MRCP results before scheduling this since she had an attempted ERCP at [facility] a week ago and was not successful. In regards to the dysphagia, I continue to increase the patient to continue with small frequent meals and I will advance to a soft diet today. If she still has symptoms, will obtain a modified barium swallow to see for any evidence of aspiration. For now, will continue to follow the patient closely during her hospital stay. Thank you for this consultation.
--- NOTE | 2016-12-13 12:04 | P.PN ---
Subjective The patient's diet was advanced by GI. Swallowing difficulties continue to the same extent. There does not appear to be any significant difference between the liquids, and more solid foods. She is able to maintain at least a partial by mouth intake. Objective - Vital Signs Vital signs: Vital Signs Temp 96.9 F L 12/13/16 07:00 Pulse 111 H 12/13/16 07:00 Resp 20 12/13/16 07:00 BP 136/90 12/13/16 07:00 Pulse Ox 97 12/13/16 07:00 Intake & Output 12/12/16 12/13/16 12/13/16 18:59 06:59 18:59 Intake Total 300 Balance 300 Intake: Intake, IV Titration 300 Amount Sodium Chloride 0.9% 1, 300 000 ml @ 100 mls/hr IV . Q10H [facility] Rx#:[id number] Other: Voiding Method Toilet Toilet Toilet # Voids 3 3 - Constitutional General appearance: Present: no acute distress - EENT Eyes: Present: ptosis (Left) - Respiratory Respiratory: bilateral: CTA - Cardiovascular Rhythm: regular Heart sounds: normal: S1, S2 - Gastrointestinal Gastrointestinal Comment(s): Mildly distended, but quite soft General gastrointestinal: Present: normal bowel sounds, soft - Integumentary Integumentary: Present: normal - Neurologic Neurologic: Present: focal deficits (Left ptosis) - Musculoskeletal Musculoskeletal: Present: generalized weakness, strength equal bilaterally - Psychiatric Psychiatric: Present: A&O x's 3, appropriate affect - Labs CBC & Chem 7: 12/12/16 06:00 12/12/16 06:00 Labs: Abnormal Lab Results - Last 24 Hours (Table) 12/13/16 Range/Units 06:18 Calcium 6.1 L* (8.4-10.2) mg/dL Ionized Calcium Renny 3.8 L (4.5-5.3) mg/dL Assessment and Plan (1) Breast cancer Narrative/Plan: The patient is currently continuing on radiation, and steroids for her metastatic brain disease. Systemic therapy will start after completion of radiation. At this time we're awaiting complete records from the [facility]. Follow-up with Dr. Coe will be scheduled in the outpatient setting. Status: Acute (2) Dysphagia Narrative/Plan: Based on workup so far, and her clinical presentation, this is felt to be likely neurogenic. Previous EGDs have failed to reveal any mechanical obstruction. Case was discussed with Dr. Houser. The patient is not felt to be a candidate for PEG tube placement, because of ascites. Similar complications could occur even with the J-tube placement, which anyway could be more constipated because of her known metastatic disease in the peripancreatic area. As the patient is able to maintain at least a partial by mouth intake, and her weight reasonably, continue by mouth currently Status: Acute (3) Obstructive jaundice Narrative/Plan: The case was discussed with GI in this regard also. MRCP was ordered but could not be done yesterday. It'll be done tomorrow. Based on the MRCP, GI will decide about attempting an ERCP and stent placement. If ERCP is not felt to be possible, or is unsuccessful, the PTC will be planned. Status: Acute
--- NOTE | 2016-12-13 13:37 | P.PN ---
Progress Note - Text The patient's condition is essentially unchanged. She continues to be bothered by difficulty swallowing. It is unclear whether or not she would benefit from placement of a right ureteral stent. Ultimately, I believe the decision is a factor of whether or not she will be aggressively treated moving forward. If so , I would suggest stent placement. Conversely, if the decision is made to focus primarily on the palliative care, I do not feel she would benefit from stent placement in that setting. I have discussed this with Dr. Coe, and will gladly place a stent in the future if desired.
[2016-12-13] MEDS: FLUCONAZOLE IN NACL,ISO-OSM 200 MG in SALINE 1 100ML.BAG IVPB SCH (15:49)
[2016-12-13] MEDS: HYDROmorphone 1 MG/ML 1 ML SYRINGE IV PRN (20:12)
[2016-12-13] MEDS: POLYETHYLENE GLYCOL 3350 17 GM POWD.PACK PO SCH (20:12)
[2016-12-13] MEDS: LORazepam 2 MG/ML SYRINGE IV PRN (21:49)
[2016-12-14] MEDS: DEXAMETHASONE SOD PHOSPHATE 4 MG/ML 1 ML VIAL IV SCH ×3 (04:59→18:03)
[2016-12-14] MEDS: ONDANSETRON 4 MG/2 ML VIAL IVP PRN (04:59)
[2016-12-14] MEDS: SODIUM CHLORIDE 0.9% 1,000 ML IV SCH ×2 (05:02→12:25)
[2016-12-14 06:29] LABS: Anisocytosis Slight; Basophils % (A) 0 %; CH 34.1; CHCM 31.7; Eosinophils % (A) 0 %; HCT 31.5 % (34.0-46.0); HDW 2.39; HGB 9.8 gm/dL (11.4-16.0); Luc # (Auto) 0.05; Luc % (Auto) 1; Lymphocytes # (A) 0.1 k/uL (1.0-4.8); Lymphocytes % (A) 1 %; MCH 33.7 pg (25.0-35.0); MCHC 31.1 g/dL (31.0-37.0); MCV 108.1 fL (80.0-100.0); Macrocytosis Marked; Mean Platelet Volume 8.6; Monocytes # (A) 0.5 k/uL (0-1.0); Monocytes % (A) 7 %; Neutrophils # (A) 7.2 k/uL (1.3-7.7); Neutrophils % (A) 91 %; RBC 2.91 m/uL (3.80-5.40); RDW 16.3 % (11.5-15.5); WBC 7.8 k/uL (3.8-10.6); WBC (Perox) 8.42
[2016-12-14 06:44] LABS: Potassium 4.3 mmol/L (3.5-5.1); Total Bilirubin 7.1 mg/dL (0.2-1.3); Total Protein 5.7 g/dL (6.3-8.2)
[2016-12-14 06:59] LABS: Calcium 6.2 mg/dL (8.4-10.2)
[2016-12-14] MEDS: PANTOPRAZOLE 40 MG/10 ML VIAL IV SCH (08:51)
[2016-12-14] MEDS: SALT AND SODA MOUTHWASH 1,000 ML PO SCH ×2 (08:52→17:00)
[2016-12-14] MEDS: LORazepam 2 MG/ML SYRINGE IV PRN (10:25)
[2016-12-14] MEDS: HYDROmorphone 1 MG/ML 1 ML SYRINGE IV PRN ×2 (10:26→22:32)
[2016-12-14] MEDS ORDERED: CALCIUM GLUCONATE 1,000 MG in SODIUM CHLORIDE 0.9% 100 ML IVPB ONE (13:42)
--- NOTE | 2016-12-14 14:32 | PN ---
DATE OF SERVICE: 12/14/2016 Patient is a 66-year-old pleasant lady with history of metastatic breast cancer, admitted to the hospital with jaundice, difficulty swallowing, fatigue and weakness. She remains on a clear liquid diet. Continues to have trouble swallowing. She just returned from radiation therapy for brain metastasis and feels somewhat dizzy. She denies any nausea or vomiting. On physical examination, she appears comfortable, in no apparent distress. Vitals signs are stable. Blood pressure is 112/79, pulse is 97, temperature 97.3. HEENT examination unremarkable, conjunctivae or pink, sclerae nonicteric. Oral cavity no lesions. NECK: No JVD or lymph node enlargement. Chest was clear to auscultation. HEART: Regular rate and rhythm. Abdomen is soft. Bowel sounds are positive. No organomegaly. EXTREMITIES: No pedal edema. SKIN: No rashes. NEURO: Alert and oriented x3. No focal deficits. Labs done today, WBC 7.8, hemoglobin 9.8, platelets are 257, BUN 33, creatinine 1.32. T-bili 7.1, alk phos is 406, ALT and AST are 134 and 105 respectively. Amylase, lipase not done. IMPRESSION: 1. Obstructive jaundice with CAT scan showing dilated biliary system. She had an attempted ERCP at [facility] was unsuccessful. She is scheduled for an MRCP today and based on this, will consider proceeding with a repeat ERCP with attempted stent placement tomorrow. 2. Dysphagia, probably oropharyngeal in nature related to brain metastasis. EGD from June of 2016 showed no esophageal stricture. Patient continues to be troubled with dysphagia, not a candidate for a PEG tube placement because of ascites noted on recent CAT scan. 3. Metastatic breast cancer with bone and brain metastases, undergoing radiation therapy to the brain. RECOMMENDATIONS: 1. Await MRCP results. 2. Consider surgical consultation for a gastrostomy tube placement if she continues to have progressive dysphagia. 3. I will continue to follow the patient closely during her hospital stay. Thank you for this consultation.
--- NOTE | 2016-12-14 15:47 | MR ---
EXAMINATION TYPE: MR liver wo con DATE OF EXAM: 12/14/2016 2:18 PM COMPARISON: CT abdomen pelvis from 3 days earlier. HISTORY: jaundice dilated ducts Standard multiplanar, multisequence MRI departmental protocol Multiplanar, multisequence images of the abdomen focusing on liver were acquired. FINDINGS: Exam is suboptimal due to significant patient motion, in addition patient could not complet e entire imaging including ordered MRCP imaging which was not performed. There is redemonstration of partially visualized left breast implant. There are moderate bilateral pl eural effusions partially imaged felt slightly larger versus recent CT. There is moderate to severe intrahepatic and extrahepatic biliary dilatation redemonstrated with abru pt tapering at level of pancreatic head. No obvious mass is present at this level. Consider stricturi ng. Common bile duct measures up to 13 mm diameter on coronal image [address] Pancrea tic duct is visualized but not suspiciously dilated in the head. Liver is somewhat small in size. Mod erate adjacent ascites remains present. Gallbladder is redemonstrated with distended peripheral isela ns. No intraluminal gallstones are clearly seen. No suspicious gallbladder wall thickening is present . Pancreas is suboptimally evaluated. There is 7 mm cystic lesion in the pancreatic head on coronal onesimo ge 14 noted. Pancreatic duct is mildly dilated in the body. Severe right-sided hydronephrosis is redemonstrated. Moderate left-sided hydronephrosis is again seen . Small to moderate amount of ascites in the left abdomen is redemonstrated. Heterogeneous appearance to osseous structures is consistent with ossific metastatic disease seen bet ter on recent CT. IMPRESSION: Suboptimal study as detailed above. MRCP imaging was not performed. Moderate to severe biliary dilata tion with abrupt narrowing may reflect stricture. Consider ERCP correlation. Ascites and pleural effu sions redemonstrated. Abnormal nonspecific appearance to pancreas suboptimally evaluated on MRI is no nirav. Moderate to severe right greater than left hydronephrosis is redemonstrated.
--- NOTE | 2016-12-14 16:47 | P.PN ---
Subjective 65-year-old female with history of breast cancer with metastases to the bones and recent diagnosis of metastases to the brain comes in the hospital with complains of dysphagia. Patient was recently evaluated at [facility] was told regarding her brain metastases was deferred to have radiation therapy. Patient underwent radiation therapy today. Patient underwent EGD recently without any acute obstruction. Over the last few days patient was noted to have some dysphagia which she states she is not able to tolerate even liquids and solids. Patient has been on steroids for treatment of vasogenic edema up for metastatic lesions. Patient denies having any headaches chills, nausea, abdominal pain, diarrhea. Patient does have a left droopy eye and gets tearful multiple times during our conversation. 12/12/2016 Patient is currently angry as she was not able to have MRCP done due to the staff being not able to find prophylaxis.. Denies having any change in vision, headaches, chest pain, difficulty breathing, abdominal pain. 12/13/2016 Denies having any new complaints. Has not had a bowel movement in 3 days. No fevers, chills, nausea, vomiting. Patient was evaluated by urology a stent is a possibility for the right-sided hydroureteronephrosis. 12/14/16 Continues to have intermittent dysphagia. NO new overnight events. Objective - Vital Signs Vital signs: Vital Signs Temp 97.5 F L 12/14/16 07:00 Pulse 115 H 12/14/16 07:00 Resp 18 12/14/16 07:00 BP 153/93 12/14/16 07:00 Pulse Ox 97 12/14/16 07:00 Intake & Output 12/13/16 12/14/16 12/14/16 18:59 06:59 18:59 Intake Total 250 Balance 250 Weight 47.627 kg Intake: Oral 250 Other: Voiding Method Toilet Toilet # Voids 2 3 - Exam Appearance appears like less icteric Lungs good air entry clear to auscultation heart S1-S2 heard regular rate and rhythm no murmurs appreciable Abdomen is soft nontender organomegaly Neurologically no focal motor or sensory deficits noted. Skin slight jaundice is appreciated Eyes there is a left-sided lid droop - Labs CBC & Chem 7: 12/14/16 06:15 12/14/16 06:15 Labs: Abnormal Lab Results - Last 24 Hours (Table) 12/14/16 12/14/16 Range/Units 06:15 06:15 RBC 2.91 L (3.80-5.40) m/uL Hgb 9.8 L (11.4-16.0) gm/dL Hct 31.5 L (34.0-46.0) % MCV 108.1 H (80.0-100.0) fL RDW 16.3 H (11.5-15.5) % Lymphocytes # 0.1 L (1.0-4.8) k/uL Chloride 112 H (98-107) mmol/L Carbon Dioxide 15 L (22-30) mmol/L BUN 33 H (7-17) mg/dL Creatinine 1.32 H (0.52-1.04) mg/dL Glucose 154 H (74-99) mg/dL Calcium 6.2 L* (8.4-10.2) mg/dL Total Bilirubin 7.1 H (0.2-1.3) mg/dL AST 134 H (14-36) U/L ALT 104 H (9-52) U/L Alkaline Phosphatase 406 H (38-126) U/L Total Protein 5.7 L (6.3-8.2) g/dL Albumin 2.9 L (3.5-5.0) g/dL Assessment and Plan Plan: #1 metastatic breast cancer with leptomeningeal involvement #2 dysphagia #3 acute pancreatitis likely obstructive/infiltrative in nature #4 oral thrush with likely esophagitis from Melinda albicans #5 left sided facial droop likely secondary to lesion #6 hypocalcemia likely secondary to pancreatitis from infiltration Plan MRCP results reviewed Will need recs from GI in regards to ERCP vs PTC placement. Gastrostomy tube placement? Oncology recs in to further tx plans. Prognosis is poor.
[2016-12-14] MEDS: FLUCONAZOLE IN NACL,ISO-OSM 200 MG in SALINE 1 100ML.BAG IVPB SCH (16:59)
[2016-12-14] MEDS: POLYETHYLENE GLYCOL 3350 17 GM POWD.PACK PO SCH (21:11)
[2016-12-14] MEDS: SODIUM BICARBONATE TAB 650 MG TAB PO SCH (21:20)
[2016-12-15] MEDS: SALT AND SODA MOUTHWASH 1,000 ML PO SCH ×4 (00:09→23:19)
[2016-12-15] MEDS: DEXAMETHASONE SOD PHOSPHATE 4 MG/ML 1 ML VIAL IV SCH ×5 (00:09→23:18)
[2016-12-15] MEDS: SODIUM CHLORIDE 0.9% 1,000 ML IV SCH ×4 (00:14→19:54)
[2016-12-15 06:14] LABS: Anisocytosis Slight; Basophils % (A) 0 %; CH 33.9; CHCM 31.4; Eosinophils % (A) 1 %; HDW 2.35; HGB 10.3 gm/dL (11.4-16.0); Luc # (Auto) 0.03; Luc % (Auto) 0; Lymphocytes # (A) 0.1 k/uL (1.0-4.8); Lymphocytes % (A) 2 %; MCH 33.8 pg (25.0-35.0); MCHC 31.1 g/dL (31.0-37.0); MCV 108.5 fL (80.0-100.0); Macrocytosis Marked; Mean Platelet Volume 7.7; Monocytes # (A) 0.3 k/uL (0-1.0); Monocytes % (A) 5 %; Neutrophils # (A) 5.8 k/uL (1.3-7.7); Neutrophils % (A) 93 %; RBC 3.04 m/uL (3.80-5.40); WBC 6.2 k/uL (3.8-10.6); WBC (Perox) 6.95
[2016-12-15 06:43] LABS: Magnesium 2.2 mg/dL (1.6-2.3); Potassium 4.6 mmol/L (3.5-5.1); Total Bilirubin 6.8 mg/dL (0.2-1.3); Total Protein 5.6 g/dL (6.3-8.2)
[2016-12-15 06:46] LABS: Calcium 6.3 mg/dL (8.4-10.2)
[2016-12-15] MEDS ORDERED: CALCIUM GLUCONATE 1,000 MG in SODIUM CHLORIDE 0.9% 100 ML IVPB ONE ×2 (07:29→19:30)
[2016-12-15 08:35] LABS: Manual Review Performed
[2016-12-15] MEDS: SODIUM BICARBONATE TAB 650 MG TAB PO SCH ×3 (08:45→19:55)
[2016-12-15] MEDS: PANTOPRAZOLE 40 MG/10 ML VIAL IV SCH (08:45)
[2016-12-15] MEDS: LORazepam 2 MG/ML SYRINGE IV PRN ×2 (10:21→23:16)
[2016-12-15] MEDS: HYDROmorphone 1 MG/ML 1 ML SYRINGE IV PRN (10:22)
--- NOTE | 2016-12-15 12:12 | P.PN ---
Subjective Principal diagnosis: Obstructive jaundice 66-year-old female with a history metastatic breast cancer admitted with obstructive jaundice. MRI/MRCP shows intra-and extrahepatic biliary dilatation with tapering at the pancreatic head lesion in the pancreatic head. Denies abdominal pain. Reports difficulty swallowing. No nausea or vomiting. Afebrile. Total bilirubin 6.8. Objective - Vital Signs Vital signs: Vital Signs Temp 97 F L 12/15/16 06:13 Pulse 114 H 12/15/16 06:13 Resp 17 12/15/16 06:13 BP 135/85 12/15/16 06:13 Pulse Ox 96 12/15/16 06:13 Intake & Output 12/14/16 12/15/16 12/15/16 18:59 06:59 18:59 Intake Total 800 1620 Balance 800 1620 Weight 47.627 kg Intake: IV 900 Sodium Chloride 0.9% 1, 900 000 ml @ 100 mls/hr IV . Q10H [facility] Rx#:[id number] Intake, IV Titration 700 500 Amount Sodium Chloride 0.9% 1, 650 500 000 ml @ 100 mls/hr IV . Q10H [facility] Rx#:[id number] cefTRIAXone 1,000 mg In 50 Sodium Chloride 0.9% 50 ml @ 100 mls/hr IVPB Q24HR [facility] Rx#:[id number] Oral 100 220 Other: Voiding Method Toilet - Exam General appearance: The patient is alert, oriented, in no acute distress. Jaundice. HET: Head is normocephalic and atraumatic. Hair thinly distributed sparse. Left eye with mild ptosis. Pupils are equal and reactive. Sclerae icterus. Oropharynx is clear without lesions. Neck: Supple without lymphadenopathy. Trachea midline. Heart: S1 S2. Regular rate and rhythm. Lungs: No crackles or wheezes are heard. Mediport. Abdomen: Soft, nontender, nondistended with bowel sounds. No peritoneal signs. No palpable organomegaly or masses. Extremities: Normal skin color and turgor. No cyanosis, rash, ulceration, clubbing, or edema. Radial and pedal pulses are 2/4 bilaterally. Neurological: No focal deficits. Strength and sensation are grossly intact. - Labs CBC & Chem 7: 12/15/16 06:03 12/15/16 06:03 Labs: Abnormal Lab Results - Last 24 Hours (Table) 12/13/16 12/15/16 12/15/16 Range/Units 06:18 06:03 06:03 RBC 3.04 L (3.80-5.40) m/uL Hgb 10.3 L (11.4-16.0) gm/dL Hct 33.0 L (34.0-46.0) % MCV 108.5 H (80.0-100.0) fL RDW 16.0 H (11.5-15.5) % Lymphocytes # 0.1 L (1.0-4.8) k/uL Chloride 113 H (98-107) mmol/L Carbon Dioxide 16 L (22-30) mmol/L BUN 38 H (7-17) mg/dL Creatinine 1.46 H (0.52-1.04) mg/dL Glucose 180 H (74-99) mg/dL Calcium 6.3 L* (8.4-10.2) mg/dL Total Bilirubin 6.8 H (0.2-1.3) mg/dL AST 118 H (14-36) U/L ALT 104 H (9-52) U/L Alkaline Phosphatase 398 H (38-126) U/L Total Protein 5.6 L (6.3-8.2) g/dL Albumin 2.8 L (3.5-5.0) g/dL PTH Intact 1093.0 H (14.0-72.0) pg/mL Assessment and Plan (1) Obstructive jaundice Narrative/Plan: 66-year-old female with metastatic breast cancer to bone and brain presents to intractable nausea vomiting elevated transaminases, pancreatic enzymes and jaundice consistent with obstructive jaundice and pancreatitis even though she is without abdominal pain. Etiology of pancreatitis and jaundice could be related to malignancy however stricture or gallstone cannot be entirely excluded. MRCP/MRI reports intra-and extra hepatic biliary dilatation with tapering at the pancreatic head with cystic mass in the pancreatic head. Computed tomography scan abdomen and pelvis reported dilated pancreatic and intrahepatic biliary ductal dilatation without cholelithiasis or discrete pancreatic mass. Status: Acute (2) Brain metastases Status: Chronic Plan: 1. ERCP tomorrow. The geological sample tester has discussed the risks, benefits and alternative therapies for the above-mentioned procedure and for both sedation/analgesia as well as necessary blood product administration, if indicated, as they pertain to this patient. The patient has indicated understanding and acceptance of the risks and procedures discussed. The above dictated assessment and findings were discussed with Dr. Houser. The impression and plan of care have been directed as dictated.
[2016-12-15] MEDS: FLUCONAZOLE IN NACL,ISO-OSM 200 MG in SALINE 1 100ML.BAG IVPB SCH (16:12)
--- NOTE | 2016-12-15 18:41 | P.PN ---
Subjective 65-year-old female with history of breast cancer with metastases to the bones and recent diagnosis of metastases to the brain comes in the hospital with complains of dysphagia. Patient was recently evaluated at [facility] was told regarding her brain metastases was deferred to have radiation therapy. Patient underwent radiation therapy today. Patient underwent EGD recently without any acute obstruction. Over the last few days patient was noted to have some dysphagia which she states she is not able to tolerate even liquids and solids. Patient has been on steroids for treatment of vasogenic edema up for metastatic lesions. Patient denies having any headaches chills, nausea, abdominal pain, diarrhea. Patient does have a left droopy eye and gets tearful multiple times during our conversation. 12/12/2016 Patient is currently angry as she was not able to have MRCP done due to the staff being not able to find prophylaxis.. Denies having any change in vision, headaches, chest pain, difficulty breathing, abdominal pain. 12/13/2016 Denies having any new complaints. Has not had a bowel movement in 3 days. No fevers, chills, nausea, vomiting. Patient was evaluated by urology a stent is a possibility for the right-sided hydroureteronephrosis. 12/14/16 Continues to have intermittent dysphagia. NO new overnight events. 12/15/16 No new overnight events. Objective - Vital Signs Vital signs: Vital Signs Temp 97.6 F 12/15/16 15:00 Pulse 116 H 12/15/16 15:00 Resp 16 12/15/16 15:00 BP 123/84 12/15/16 15:00 Pulse Ox 97 12/15/16 15:00 Intake & Output 12/14/16 12/15/16 12/15/16 18:59 06:59 18:59 Intake Total 800 1620 970 Balance 800 1620 970 Weight 47.627 kg Intake: IV 900 600 Sodium Chloride 0.9% 1, 900 600 000 ml @ 100 mls/hr IV . Q10H [facility] Rx#:[id number] Intake, IV Titration 700 500 200 Amount Calcium Gluconate 1,000 100 mg In Sodium Chloride 0.9 % 100 ml @ 100 mls/hr IVPB ONCE ONE Rx#: [id number] Fluconazole in NaCl,Iso- 100 Osm 200 mg In Saline 1 100ml.bag @ 100 mls/hr IVPB DAILY@1600 [facility] Rx#: [id number] Sodium Chloride 0.9% 1, 650 500 000 ml @ 100 mls/hr IV . Q10H [facility] Rx#:[id number] cefTRIAXone 1,000 mg In 50 Sodium Chloride 0.9% 50 ml @ 100 mls/hr IVPB Q24HR [facility] Rx#:[id number] Oral 100 220 170 Other: Voiding Method Toilet - Exam Appearance appears like less icteric Lungs good air entry clear to auscultation heart S1-S2 heard regular rate and rhythm no murmurs appreciable Abdomen is soft nontender organomegaly Neurologically no focal motor or sensory deficits noted. Skin slight jaundice is appreciated Eyes there is a left-sided lid droop - Labs CBC & Chem 7: 12/15/16 06:03 12/15/16 06:03 Labs: Abnormal Lab Results - Last 24 Hours (Table) 12/13/16 12/15/16 12/15/16 Range/Units 06:18 06:03 06:03 RBC 3.04 L (3.80-5.40) m/uL Hgb 10.3 L (11.4-16.0) gm/dL Hct 33.0 L (34.0-46.0) % MCV 108.5 H (80.0-100.0) fL RDW 16.0 H (11.5-15.5) % Lymphocytes # 0.1 L (1.0-4.8) k/uL Chloride 113 H (98-107) mmol/L Carbon Dioxide 16 L (22-30) mmol/L BUN 38 H (7-17) mg/dL Creatinine 1.46 H (0.52-1.04) mg/dL Glucose 180 H (74-99) mg/dL Calcium 6.3 L* (8.4-10.2) mg/dL Total Bilirubin 6.8 H (0.2-1.3) mg/dL AST 118 H (14-36) U/L ALT 104 H (9-52) U/L Alkaline Phosphatase 398 H (38-126) U/L Total Protein 5.6 L (6.3-8.2) g/dL Albumin 2.8 L (3.5-5.0) g/dL PTH Intact 1093.0 H (14.0-72.0) pg/mL Assessment and Plan Plan: #1 metastatic breast cancer with leptomeningeal involvement #2 dysphagia #3 acute pancreatitis likely obstructive/infiltrative in nature #4 oral thrush with likely esophagitis from Melinda albicans #5 left sided facial droop likely secondary to lesion #6 hypocalcemia likely secondary to pancreatitis from infiltration Plan MRCP results reviewed ERCP chandni CUrrently undergoing whole brain radiation Chemotherapy on d/c. per oncology.
[2016-12-15] MEDS: POLYETHYLENE GLYCOL 3350 17 GM POWD.PACK PO SCH (21:09)
[2016-12-16] MEDS: HYDROmorphone 1 MG/ML 1 ML SYRINGE IV PRN ×2 (02:14→23:39)
[2016-12-16] MEDS: DEXAMETHASONE SOD PHOSPHATE 4 MG/ML 1 ML VIAL IV SCH ×4 (06:11→23:38)
[2016-12-16] MEDS: SODIUM CHLORIDE 0.9% 1,000 ML IV SCH ×4 (06:11→21:49)
[2016-12-16] MEDS: SODIUM BICARBONATE TAB 650 MG TAB PO SCH ×2 (08:14→20:29)
[2016-12-16] MEDS: SALT AND SODA MOUTHWASH 1,000 ML PO SCH ×3 (08:19→23:41)
[2016-12-16] MEDS: PANTOPRAZOLE 40 MG/10 ML VIAL IV SCH (08:19)
[2016-12-16 11:30] LABS: Anisocytosis Slight; Basophils % (A) 0 %; CH 34.3; CHCM 31.7; Eosinophils % (A) 0 %; HCT 33.3 % (34.0-46.0); HDW 2.42; HGB 10.3 gm/dL (11.4-16.0); Luc # (Auto) 0.02; Luc % (Auto) 0; Lymphocytes # (A) 0.1 k/uL (1.0-4.8); Lymphocytes % (A) 1 %; MCH 33.8 pg (25.0-35.0); MCHC 31.1 g/dL (31.0-37.0); MCV 108.8 fL (80.0-100.0); Macrocytosis Marked; Mean Platelet Volume 8.7; Monocytes # (A) 0.4 k/uL (0-1.0); Monocytes % (A) 5 %; Neutrophils # (A) 7.5 k/uL (1.3-7.7); Neutrophils % (A) 94 %; RBC 3.06 m/uL (3.80-5.40); RDW 16.2 % (11.5-15.5); WBC (Perox) 8.16
[2016-12-16] MEDS ORDERED: INDOMETHACIN 50MG SUPPOSITORY RECTAL ONE (12:00)
[2016-12-16] MEDS ORDERED: LEVOFLOXACIN 500MG-D5W PMX 500 MG in DEXTROSE/WATER 1 100ML.BAG IVPB ONE (12:00)
[2016-12-16 12:04] LABS: Calcium 6.6 mg/dL (8.4-10.2); Magnesium 2.2 mg/dL (1.6-2.3); Potassium 4.6 mmol/L (3.5-5.1); Total Bilirubin 8.2 mg/dL (0.2-1.3); Total Protein 5.6 g/dL (6.3-8.2)
[2016-12-16 13:00] LABS: Manual Review Performed
[2016-12-16] MEDS ORDERED: IV FLUID CONTINUATION 1,000 ML IV ONE (13:07)
[2016-12-16] MEDS ORDERED: LIDOCAINE 1% INJ 10MG/ML (20 ML MDV) ONE (13:16)
[2016-12-16] MEDS ORDERED: PROPOFOL 10 MG/ML 20 ML VIAL IV ONE (13:16)
[2016-12-16] MEDS ORDERED: MIDAZOLAM 2 MG/2 ML VIAL ONE (13:16)
[2016-12-16] MEDS ORDERED: fentaNYL (PF) 50 MCG/ML 2 ML AMP ONE (13:16)
[2016-12-16] MEDS ORDERED: IV FLUID CONTINUATION 900 ML IV ONE (13:18)
--- NOTE | 2016-12-16 13:35 | P.PCN ---
Date of Procedure: 12/16/16 Procedure(s) Performed: Brief history: Patient is a 66-year-old white female, admitted hospital with metastatic breast cancer. She was noted to have obstructive jaundice and an MRCP done showed dilated biliary system all the way to the head of the pancreas suspicious for distal CBD stricture. The patient had an attempted ERCP couple of weeks ago at [facility] and according to her was not successful. Because of progressive jaundice she is scheduled for repeat ERCP with attempted the CBD stent placement. Procedure performed: Esophagoscopy Preoperative diagnoses: Obstructive jaundice history of metastatic breast cancer IV sedation per anesthesia: Procedure: After informed consent was obtained from the patient and after the risks benefits and complications including bleeding perforation and pancreatitis explained in detail the patient was brought into the endoscopy unit. The patient was placed in prone position and IV conscious sedation was administered by anesthesia under continuous monitoring. The Olympus side-viewing duodenoscope was then inserted into the mouth and esophagus intubated without any difficulty.. It could not be advanced any further beyond 20 cm from the incisors. At this time the scope was removed. The forward-viewing scope was then passed from the mouth and esophagus intubated without any difficulty and at 20 cm from the incisors there was a tight stricture identified. Despite multiple attempts I was not able to advance the scope further. Hence at this time the procedure was terminated. And the patient tolerated the procedure well. Impression: Tight proximal esophageal stricture precluding passage of the scope safely beyond this area and hence ERCP could not be performed. Recommendations: The findings of this examination were discussed with the patient as well as a family. She'll be scheduled for percutaneous biliary drainage by interventional radiology tomorrow.
[2016-12-16] MEDS ORDERED: FUROSEMIDE 10 MG/ML 4 ML VIAL IV STA (14:32)
[2016-12-16] MEDS: FLUCONAZOLE IN NACL,ISO-OSM 200 MG in SALINE 1 100ML.BAG IVPB SCH (15:30)
--- NOTE | 2016-12-16 15:43 | P.PN ---
Subjective 65-year-old female with history of breast cancer with metastases to the bones and recent diagnosis of metastases to the brain comes in the hospital with complains of dysphagia. Patient was recently evaluated at [facility] was told regarding her brain metastases was deferred to have radiation therapy. Patient underwent radiation therapy today. Patient underwent EGD recently without any acute obstruction. Over the last few days patient was noted to have some dysphagia which she states she is not able to tolerate even liquids and solids. Patient has been on steroids for treatment of vasogenic edema up for metastatic lesions. Patient denies having any headaches chills, nausea, abdominal pain, diarrhea. Patient does have a left droopy eye and gets tearful multiple times during our conversation. 12/12/2016 Patient is currently angry as she was not able to have MRCP done due to the staff being not able to find prophylaxis.. Denies having any change in vision, headaches, chest pain, difficulty breathing, abdominal pain. 12/13/2016 Denies having any new complaints. Has not had a bowel movement in 3 days. No fevers, chills, nausea, vomiting. Patient was evaluated by urology a stent is a possibility for the right-sided hydroureteronephrosis. 12/14/16 Continues to have intermittent dysphagia. NO new overnight events. 12/15/16 No new overnight events. 12/16/2016. Patient is tearful that the procedure was not successful. Patient is scheduled for PTC tomorrow. Did discuss in regards to surgical placement of a open gastrostomy tube. Patient stated that she would discuss with her family and keep was informed. Objective - Vital Signs Vital signs: Vital Signs Temp 96.7 F L 12/16/16 07:00 Pulse 110 H 12/16/16 07:00 Resp 16 12/16/16 07:00 BP 142/84 12/16/16 07:00 Pulse Ox 97 12/16/16 07:00 Intake & Output 12/15/16 12/16/16 12/16/16 18:59 06:59 18:59 Intake Total 970 1200 1100 Balance 970 1200 1100 Intake: IV 600 1200 1000 Sodium Chloride 0.9% 1, 600 1200 700 000 ml @ 100 mls/hr IV . Q10H [facility] Rx#:[id number] Intake, IV Titration 200 100 Amount Calcium Gluconate 1,000 100 mg In Sodium Chloride 0.9 % 100 ml @ 100 mls/hr IVPB ONCE ONE Rx#: [id number] Fluconazole in NaCl,Iso- 100 Osm 200 mg In Saline 1 100ml.bag @ 100 mls/hr IVPB DAILY@1600 [facility] Rx#: [id number] Levofloxacin 500Mg-D5w 100 Pmx 500 mg In Dextrose/ Water 1 100ml.bag @ 100 mls/hr IVPB ONCE ONE Rx#: [id number] Oral 170 Other: Voiding Method Bedside Commode # Voids 1 - Exam Appearance appears like less icteric Lungs good air entry clear to auscultation heart S1-S2 heard regular rate and rhythm no murmurs appreciable Abdomen is soft nontender organomegaly Neurologically no focal motor or sensory deficits noted. Skin slight jaundice is appreciated Eyes there is a left-sided lid droop - Labs CBC & Chem 7: 12/16/16 11:10 12/16/16 11:10 Labs: Abnormal Lab Results - Last 24 Hours (Table) 12/16/16 12/16/16 Range/Units 11:10 11:10 RBC 3.06 L (3.80-5.40) m/uL Hgb 10.3 L (11.4-16.0) gm/dL Hct 33.3 L (34.0-46.0) % MCV 108.8 H (80.0-100.0) fL RDW 16.2 H (11.5-15.5) % Lymphocytes # 0.1 L (1.0-4.8) k/uL Chloride 114 H (98-107) mmol/L Carbon Dioxide 13 L (22-30) mmol/L BUN 41 H (7-17) mg/dL Creatinine 1.47 H (0.52-1.04) mg/dL Glucose 178 H (74-99) mg/dL Calcium 6.6 L (8.4-10.2) mg/dL Total Bilirubin 8.2 H (0.2-1.3) mg/dL AST 119 H (14-36) U/L ALT 113 H (9-52) U/L Alkaline Phosphatase 418 H (38-126) U/L Total Protein 5.6 L (6.3-8.2) g/dL Albumin 2.9 L (3.5-5.0) g/dL Assessment and Plan Plan: #1 metastatic breast cancer with leptomeningeal involvement #2 dysphagia #3 acute pancreatitis likely obstructive/infiltrative in nature #4 oral thrush with likely esophagitis from Melinda albicans #5 left sided facial droop likely secondary to lesion #6 hypocalcemia likely secondary to pancreatitis from infiltration Plan that her prognosis is poor with diffuse infiltration of the breast cancer. Patient verbalized understanding that there is not a cure to this however treatment prolongs her time. However, she has had multiple issues during this time. Continue ongoing care, patient will have a PTC place tomorrow. Regarding an open gastrostomy tube I did discuss with the patient a consult to Dr. Chidi garcia will likely be placed at that time if family is agreeable to that. Also discussed the patient family should discuss with oncology in regards to her prognosis.
--- NOTE | 2016-12-16 17:42 | P.PN ---
Subjective Principal diagnosis: Dehydration, anorexia, intractable vomiting. Metastatic Breast cancer Pt is seen today in follow up. She is tolerating soft foods now, only in small amounts. Pain is controlled with current analgesics, she is tolerating radiation. Objective - Vital Signs Vital signs: Vital Signs Temp 96.6 F L 12/16/16 15:00 Pulse 102 H 12/16/16 15:00 Resp 16 12/16/16 15:00 BP 140/86 12/16/16 15:00 Pulse Ox 95 12/16/16 15:00 Intake & Output 12/15/16 12/16/16 12/16/16 18:59 06:59 18:59 Intake Total 970 1200 1100 Balance 970 1200 1100 Intake: IV 600 1200 1000 Sodium Chloride 0.9% 1, 600 1200 700 000 ml @ 100 mls/hr IV . Q10H [facility] Rx#:[id number] Intake, IV Titration 200 100 Amount Calcium Gluconate 1,000 100 mg In Sodium Chloride 0.9 % 100 ml @ 100 mls/hr IVPB ONCE ONE Rx#: [id number] Fluconazole in NaCl,Iso- 100 Osm 200 mg In Saline 1 100ml.bag @ 100 mls/hr IVPB DAILY@1600 [facility] Rx#: [id number] Levofloxacin 500Mg-D5w 100 Pmx 500 mg In Dextrose/ Water 1 100ml.bag @ 100 mls/hr IVPB ONCE ONE Rx#: [id number] Oral 170 Other: Voiding Method Bedside Commode # Voids 1 - Exam No acute physical distress, alert and oriented x 3, respirations even and unlabored - Constitutional General appearance: Present: average body habitus, cooperative, no acute distress - Labs CBC & Chem 7: 12/16/16 11:10 12/16/16 11:10 Labs: Abnormal Lab Results - Last 24 Hours (Table) 12/16/16 12/16/16 Range/Units 11:10 11:10 RBC 3.06 L (3.80-5.40) m/uL Hgb 10.3 L (11.4-16.0) gm/dL Hct 33.3 L (34.0-46.0) % MCV 108.8 H (80.0-100.0) fL RDW 16.2 H (11.5-15.5) % Lymphocytes # 0.1 L (1.0-4.8) k/uL Chloride 114 H (98-107) mmol/L Carbon Dioxide 13 L (22-30) mmol/L BUN 41 H (7-17) mg/dL Creatinine 1.47 H (0.52-1.04) mg/dL Glucose 178 H (74-99) mg/dL Calcium 6.6 L (8.4-10.2) mg/dL Total Bilirubin 8.2 H (0.2-1.3) mg/dL AST 119 H (14-36) U/L ALT 113 H (9-52) U/L Alkaline Phosphatase 418 H (38-126) U/L Total Protein 5.6 L (6.3-8.2) g/dL Albumin 2.9 L (3.5-5.0) g/dL Assessment and Plan (1) Metastatic breast cancer Narrative/Plan: Plan for chemotherapy after radiation complete and pt nutrition and ambulatory status has been evaluated. Status: Chronic (2) Brain metastases Narrative/Plan: Dr. Nicholson treating, pt tolerating well, steroids continue Status: Chronic (3) Acute kidney injury Narrative/Plan: Persistent. Pt has been evaluated by Urology, stent in future based on plans for treatment Status: Acute (4) Pancreatitis Narrative/Plan: Asymptomatic, labs in AM Status: Acute (5) Hepatic failure Narrative/Plan: Persistent, await ERCP results. Status: Acute Plan: Dr. Holt discussed with Surgery about alternate feeding, J-tube placement was discussed as the most appropriate option for her with her complicated situation. This was discussed with pt as and she is interested, will follow up.
[2016-12-16] MEDS: POLYETHYLENE GLYCOL 3350 17 GM POWD.PACK PO SCH (20:29)
[2016-12-16] MEDS: LORazepam 2 MG/ML SYRINGE IV PRN (21:49)
[2016-12-17] MEDS: DEXAMETHASONE SOD PHOSPHATE 4 MG/ML 1 ML VIAL IV SCH ×4 (06:06→23:12)
[2016-12-17 06:07] LABS: Anisocytosis Slight; Basophils % (A) 0 %; CH 34.4; CHCM 31.6; Eosinophils % (A) 1 %; HCT 32.6 % (34.0-46.0); HDW 2.39; Luc # (Auto) 0.02; Luc % (Auto) 0; Lymphocytes # (A) 0.1 k/uL (1.0-4.8); Lymphocytes % (A) 1 %; MCH 33.5 pg (25.0-35.0); MCHC 30.5 g/dL (31.0-37.0); MCV 109.7 fL (80.0-100.0); Macrocytosis Marked; Mean Platelet Volume 9.4; Monocytes # (A) 0.3 k/uL (0-1.0); Monocytes % (A) 5 %; Neutrophils # (A) 6.9 k/uL (1.3-7.7); Neutrophils % (A) 93 %; RBC 2.98 m/uL (3.80-5.40); RDW 16.3 % (11.5-15.5); WBC 7.4 k/uL (3.8-10.6); WBC (Perox) 7.69
[2016-12-17 06:17] LABS: Potassium 4.6 mmol/L (3.5-5.1); Total Bilirubin 8.4 mg/dL (0.2-1.3); Total Protein 5.1 g/dL (6.3-8.2)
[2016-12-17 06:29] LABS: Calcium 6.3 mg/dL (8.4-10.2)
[2016-12-17] MEDS: SODIUM BICARBONATE TAB 650 MG TAB PO SCH ×2 (07:32→21:29)
[2016-12-17] MEDS: SALT AND SODA MOUTHWASH 1,000 ML PO SCH ×2 (07:34→16:05)
[2016-12-17] MEDS: PANTOPRAZOLE 40 MG/10 ML VIAL IV SCH (07:34)
[2016-12-17] MEDS: ONDANSETRON 4 MG/2 ML VIAL IVP PRN (08:36)
[2016-12-17] MEDS: SODIUM CHLORIDE 0.9% 1,000 ML IV SCH ×2 (12:07→21:57)
[2016-12-17] MEDS ORDERED: CALCIUM GLUCONATE 1,000 MG in SODIUM CHLORIDE 0.9% 100 ML IVPB ONE (13:00)
[2016-12-17] MEDS: LORazepam 2 MG/ML SYRINGE IV PRN ×2 (13:14→21:38)
[2016-12-17 13:19] LABS: INR 1.2 (<1.1); Prothrombin Time 12.4 sec (9.0-12.0)
--- NOTE | 2016-12-17 13:37 | P.PN ---
Subjective Principal diagnosis: Obstructive jaundice 66-year-old female with a history metastatic breast cancer admitted with obstructive jaundice. MRI/MRCP shows intra-and extrahepatic biliary dilatation with tapering at the pancreatic head lesion in the pancreatic head. Unsuccessful attempt for ERCP yesterday secondary to esophageal narrowing, inability to pass endoscope beyond 20 cm. Scheduled for PTC and possible palate of paracentesis today. Gen. surgical consultation for open placement of feeding tube. Denies abdominal pain. Reports difficulty swallowing. No nausea or vomiting. Afebrile. Objective - Vital Signs Vital signs: Vital Signs Temp 96.9 F L 12/17/16 07:00 Pulse 104 H 12/17/16 07:00 Resp 20 12/17/16 07:00 BP 126/82 12/17/16 07:00 Pulse Ox 98 12/17/16 07:00 Intake & Output 12/16/16 12/17/16 12/17/16 18:59 06:59 18:59 Intake Total 1100 520 Balance 1100 520 Intake: IV 1000 400 Sodium Chloride 0.9% 1, 700 400 000 ml @ 100 mls/hr IV . Q10H [facility] Rx#:[id number] Intake, IV Titration 100 Amount Levofloxacin 500Mg-D5w 100 Pmx 500 mg In Dextrose/ Water 1 100ml.bag @ 100 mls/hr IVPB ONCE ONE Rx#: [id number] Oral 120 Other: Voiding Method Bedside Commode Bedside Commode # Voids 1 2 - Exam General appearance: The patient is alert, oriented, in no acute distress. Jaundice. HET: Head is normocephalic and atraumatic. Hair thinly distributed sparse. Left eye with mild ptosis. Pupils are equal and reactive. Sclerae icterus. Oropharynx is clear without lesions. Neck: Supple without lymphadenopathy. Trachea midline. Heart: S1 S2. Regular rate and rhythm. Lungs: No crackles or wheezes are heard. Mediport. Abdomen: Soft, nontender, mild to moderate ascites with bowel sounds. No peritoneal signs. No palpable organomegaly or masses. Extremities: +4 lower extremity edema. Neurological: No focal deficits. Strength and sensation are grossly intact. - Labs CBC & Chem 7: 12/17/16 05:55 12/17/16 05:55 Labs: Abnormal Lab Results - Last 24 Hours (Table) 01/19/17 01/19/17 01/19/17 Range/Units 05:55 05:55 13:00 RBC 2.98 L (3.80-5.40) m/uL Hgb 10.0 L (11.4-16.0) gm/dL Hct 32.6 L (34.0-46.0) % MCV 109.7 H (80.0-100.0) fL MCHC 30.5 L (31.0-37.0) g/dL RDW 16.3 H (11.5-15.5) % Lymphocytes # 0.1 L (1.0-4.8) k/uL PT 12.4 H (9.0-12.0) sec Chloride 114 H (98-107) mmol/L Carbon Dioxide 13 L (22-30) mmol/L BUN 45 H (7-17) mg/dL Creatinine 1.70 H (0.52-1.04) mg/dL Glucose 209 H (74-99) mg/dL Calcium 6.3 L* (8.4-10.2) mg/dL Total Bilirubin 8.4 H (0.2-1.3) mg/dL AST 107 H (14-36) U/L ALT 112 H (9-52) U/L Alkaline Phosphatase 389 H (38-126) U/L Total Protein 5.1 L (6.3-8.2) g/dL Albumin 2.6 L (3.5-5.0) g/dL Assessment and Plan (1) Obstructive jaundice Narrative/Plan: 66-year-old female with metastatic breast cancer to bone and brain presents to intractable nausea vomiting elevated transaminases, pancreatic enzymes and jaundice consistent with obstructive jaundice and pancreatitis even though she is without abdominal pain. Etiology of pancreatitis and jaundice could be related to malignancy however stricture or gallstone cannot be entirely excluded. MRCP/MRI reports intra-and extra hepatic biliary dilatation with tapering at the pancreatic head with cystic mass in the pancreatic head. Unsuccessful ERCP secondary to inability to pass endoscope beyond 20 cm in the esophagus secondary to narrowing. Computed tomography scan abdomen and pelvis reported dilated pancreatic and intrahepatic biliary ductal dilatation without cholelithiasis or discrete pancreatic mass. Status: Acute (2) Brain metastases Status: Chronic (3) Dysphagia Status: Acute Plan: 1. PTC possible paracentesis today. 2. General surgical consultation for feeding tube placement. Assessment and plan of care discussed with Dr. Houser.
--- NOTE | 2016-12-17 15:53 | US ---
EXAMINATION TYPE: US paracentesis abd w/image DATE OF EXAM: 12/17/2016 3:11 PM COMPARISON: NONE HISTORY: Ascites. PROCEDURE: Maximal barrier technique was utilized. The skin overlying a suitable pocket of fluid was localized with ultrasound and the overlying skin was prepped and draped. Ultrasound was utilized with sterile technique. Lidocaine was used for local anesthesia and a skin yanely made with a scalpel. Catheter was advanced under direct ultrasound guidance into a suitable pocket of fluid and approximately 1.3 liter s of yellow fluid were removed. Catheter was withdrawn and hemostasis achieved. There is no immedia te complication; the patient is discharged in stable condition. IMPRESSION: STATUS POST ULTRASOUND GUIDED PARACENTESIS FOR PALLIATION OF ASCITES. THIS PROCEDURE WA S PERFORMED BY THE UNDERSIGNED.
[2016-12-17] MEDS: FLUCONAZOLE IN NACL,ISO-OSM 200 MG in SALINE 1 100ML.BAG IVPB SCH (16:05)
--- NOTE | 2016-12-17 16:52 | P.GSCN ---
History of Present Illness Consult date: 12/17/16 Reason for Consult: Malnutrition History of present illness: We will see this patient regarding possible feeding tube placement. Unfortunately she has a diagnosis of advanced breast cancer with metastasis. Currently she is suffering from acute renal injury as it pertains to ureteral obstruction, brain metastases, and biliary obstruction. The patient has an obstructive process in the midesophagus that has complicated attempts at ERCP. This also has resulted in symptoms of dysphagia, malnutrition, and inability to place a percutaneous feeding tube. Review of Systems The patient denies any acute changes in his vision or hearing, no dysphagia or odynophagia, no chest pain or shortness of breath, no dysuria or hematuria, no headache, no runny nose, no rectal bleeding or melena, no unexplained weight loss Past Medical History Past Medical History: Cancer Additional Past Medical History / Comment(s): BREAST CA WITH BONE METS- PT STATED SHE HAD CHEMO 3 OR 4 WEEKS AGO NOT SURE WHEN DUE NEXT, AND HAD FIRST RADITATION [place] 12-09-16, [place] MAY 2016 History of Any Multi-Drug Resistant Organisms: None Reported Additional Past Surgical History / Comment(s): LEFT MASTECTOMY, POWER PORT IMPLANTED, multiple esophageal tests to see about stent placements per patient [facility] said they could not put one in due to severity esophagus narrowing Past Anesthesia/Blood Transfusion Reactions: No Reported Reaction Past Psychological History: No Psychological Hx Reported Smoking Status: Never smoker Past Alcohol Use History: None Reported Past Drug Use History: None Reported - Past Family History Mother Additional Family Medical History / Comment(s): Has one kidney Father Family Medical History: Myocardial Infarction ([place]) Medications and Allergies Home Medications Medication Instructions Recorded Confirmed Type Ondansetron [Zofran ODT] 8 mg PO Q8HR PRN 12/09/16 12/09/16 History Allergies Allergy/AdvReac Type Severity Reaction Status Date / Time acyclovir AdvReac Swelling Verified 12/09/16 12:25 morphine AdvReac Nausea & Verified 12/09/16 12:25 Vomiting sulfamethazine AdvReac Anaphylaxis Verified 12/09/16 12:25 EGGS AdvReac Diarrhea Uncoded 12/09/16 19:01 Surgical - Exam Vital Signs Temp Pulse Resp BP Pulse Ox 97.1 F L 111 H 16 127/66 98 12/09/16 12:26 12/09/16 12:26 12/09/16 12:26 12/09/16 12:26 12/09/16 12:26 Physical exam: General: Cachectic elderly female who appears older than her stated age in no distress HEENT: Normocephalic, sclerae nonicteric Abdomen: Edematous abdominal wall with mild distention, nontender Extremities: Edema present Neuro: Alert and oriented Results - Labs 12/17/16 05:55 12/17/16 05:55 Abnormal Lab Results - Last 24 Hours (Table) 12/17/16 12/17/16 12/17/16 Range/Units 05:55 05:55 13:00 RBC 2.98 L (3.80-5.40) m/uL Hgb 10.0 L (11.4-16.0) gm/dL Hct 32.6 L (34.0-46.0) % MCV 109.7 H (80.0-100.0) fL MCHC 30.5 L (31.0-37.0) g/dL RDW 16.3 H (11.5-15.5) % Lymphocytes # 0.1 L (1.0-4.8) k/uL PT 12.4 H (9.0-12.0) sec Chloride 114 H (98-107) mmol/L Carbon Dioxide 13 L (22-30) mmol/L BUN 45 H (7-17) mg/dL Creatinine 1.70 H (0.52-1.04) mg/dL Glucose 209 H (74-99) mg/dL Calcium 6.3 L* (8.4-10.2) mg/dL Total Bilirubin 8.4 H (0.2-1.3) mg/dL AST 107 H (14-36) U/L ALT 112 H (9-52) U/L Alkaline Phosphatase 389 H (38-126) U/L Total Protein 5.1 L (6.3-8.2) g/dL Albumin 2.6 L (3.5-5.0) g/dL Diabetes panel 12/17/16 Range/Units 05:55 Sodium 138 (137-145) mmol/L Potassium 4.6 (3.5-5.1) mmol/L Chloride 114 H (98-107) mmol/L Carbon Dioxide 13 L (22-30) mmol/L BUN 45 H (7-17) mg/dL Creatinine 1.70 H (0.52-1.04) mg/dL Glucose 209 H (74-99) mg/dL Calcium 6.3 L* (8.4-10.2) mg/dL AST 107 H (14-36) U/L ALT 112 H (9-52) U/L Alkaline Phosphatase 389 H (38-126) U/L Total Protein 5.1 L (6.3-8.2) g/dL Albumin 2.6 L (3.5-5.0) g/dL Calcium panel 12/17/16 Range/Units 05:55 Calcium 6.3 L* (8.4-10.2) mg/dL Albumin 2.6 L (3.5-5.0) g/dL Pituitary panel 12/17/16 Range/Units 05:55 Sodium 138 (137-145) mmol/L Potassium 4.6 (3.5-5.1) mmol/L Chloride 114 H (98-107) mmol/L Carbon Dioxide 13 L (22-30) mmol/L BUN 45 H (7-17) mg/dL Creatinine 1.70 H (0.52-1.04) mg/dL Glucose 209 H (74-99) mg/dL Calcium 6.3 L* (8.4-10.2) mg/dL Adrenal panel 12/17/16 Range/Units 05:55 Sodium 138 (137-145) mmol/L Potassium 4.6 (3.5-5.1) mmol/L Chloride 114 H (98-107) mmol/L Carbon Dioxide 13 L (22-30) mmol/L BUN 45 H (7-17) mg/dL Creatinine 1.70 H (0.52-1.04) mg/dL Glucose 209 H (74-99) mg/dL Calcium 6.3 L* (8.4-10.2) mg/dL Total Bilirubin 8.4 H (0.2-1.3) mg/dL AST 107 H (14-36) U/L ALT 112 H (9-52) U/L Alkaline Phosphatase 389 H (38-126) U/L Total Protein 5.1 L (6.3-8.2) g/dL Albumin 2.6 L (3.5-5.0) g/dL Assessment and Plan (1) Malnutrition Narrative/Plan: Patient with advanced malignancy. Options of feeding tube placement are somewhat limited but would include open gastrostomy or percutaneous gastrostomy placement by radiology. The patient will require general anesthesia for open gastrostomy tube placement which I informed the patient and her could very well lead to permanent respiratory failure and ventilatory requirements. At least at this time they are not interested in proceeding with that approach. We'll discuss further with Dr. Carvalho of the endoscopic findings that led to the inability to pass the midesophagus. We discussed that an alternative would be to have the patient evaluated back at the [facility] where in all likelihood a percutaneous gastrostomy tube could be placed by radiology. I also plan to discuss this further with Dr. Holt. Status: Acute
--- NOTE | 2016-12-17 18:51 | P.PN ---
Subjective Principal diagnosis: Dehydration, anorexia, intractable vomiting. Metastatic Breast cancer Pt is seen today in follow up. She continues to tolerate soft foods in VERY small amounts. Pain is controlled with current analgesics, she is tolerating radiation. Objective - Vital Signs Vital signs: Vital Signs Temp 96.9 F L 12/17/16 07:00 Pulse 117 H 12/17/16 15:08 Resp 20 12/17/16 15:08 BP 126/79 12/17/16 15:08 Pulse Ox 96 12/17/16 15:08 Intake & Output 12/16/16 12/17/16 12/17/16 18:59 06:59 18:59 Intake Total 1100 520 Balance 1100 520 Weight 47.627 kg Intake: IV 1000 400 Sodium Chloride 0.9% 1, 700 400 000 ml @ 100 mls/hr IV . Q10H [facility] Rx#:[id number] Intake, IV Titration 100 Amount Levofloxacin 500Mg-D5w 100 Pmx 500 mg In Dextrose/ Water 1 100ml.bag @ 100 mls/hr IVPB ONCE ONE Rx#: [id number] Oral 120 Other: Voiding Method Bedside Commode Bedside Commode # Voids 1 2 - Constitutional General appearance: Present: cooperative, no acute distress, thin - Psychiatric Psychiatric: Present: A&O x's 3, appropriate affect - Labs CBC & Chem 7: 12/17/16 05:55 12/17/16 05:55 Labs: Abnormal Lab Results - Last 24 Hours (Table) 12/17/16 12/17/16 12/17/16 Range/Units 05:55 05:55 13:00 RBC 2.98 L (3.80-5.40) m/uL Hgb 10.0 L (11.4-16.0) gm/dL Hct 32.6 L (34.0-46.0) % MCV 109.7 H (80.0-100.0) fL MCHC 30.5 L (31.0-37.0) g/dL RDW 16.3 H (11.5-15.5) % Lymphocytes # 0.1 L (1.0-4.8) k/uL PT 12.4 H (9.0-12.0) sec Chloride 114 H (98-107) mmol/L Carbon Dioxide 13 L (22-30) mmol/L BUN 45 H (7-17) mg/dL Creatinine 1.70 H (0.52-1.04) mg/dL Glucose 209 H (74-99) mg/dL Calcium 6.3 L* (8.4-10.2) mg/dL Total Bilirubin 8.4 H (0.2-1.3) mg/dL AST 107 H (14-36) U/L ALT 112 H (9-52) U/L Alkaline Phosphatase 389 H (38-126) U/L Total Protein 5.1 L (6.3-8.2) g/dL Albumin 2.6 L (3.5-5.0) g/dL Assessment and Plan (1) Metastatic breast cancer Narrative/Plan: Plans for further treatment based on outcomes of complicated medical issues that are being worked up. Status: Chronic (2) Brain metastases Narrative/Plan: Cont radiation under the care of Dr. Nicholson Status: Chronic (3) Acute kidney injury Narrative/Plan: Renal failure progressing Status: Acute (4) Pancreatitis Narrative/Plan: Amylase and lipase are WNL Status: Acute (5) Hepatic failure Narrative/Plan: Stable LFTs Status: Acute Plan: Dr. Holt has discussed the case with Dr. Houser, pt has extrinsic compression of the esophagus with did not allow for scope to be passed through for ERCP evaluation/intervention. Plan is for percutaneous biliary drain placement today. Dr. Holt has discussed the case with Surgery who we will consult today for evaluation of g-tube placement for nutrition We will follow up in AM and discuss the plan to proceed
[2016-12-17] MEDS: POLYETHYLENE GLYCOL 3350 17 GM POWD.PACK PO SCH (21:29)
[2016-12-17] MEDS: HYDROmorphone 1 MG/ML 1 ML SYRINGE IV PRN (23:12)
[2016-12-18] MEDS: SALT AND SODA MOUTHWASH 1,000 ML PO SCH ×3 (00:10→16:05)
[2016-12-18] MEDS: SODIUM CHLORIDE 0.9% 1,000 ML IV SCH ×2 (00:11→11:55)
[2016-12-18] MEDS: DEXAMETHASONE SOD PHOSPHATE 4 MG/ML 1 ML VIAL IV SCH ×3 (06:21→18:04)
[2016-12-18] MEDS: SODIUM BICARBONATE TAB 650 MG TAB PO SCH ×2 (09:30→20:58)
--- NOTE | 2016-12-18 12:58 | PN ---
DATE OF SERVICE: 12/17/2016 INTERVAL HISTORY: Mrs. Chung is a 66-year-old female with known history of breast cancer with metastasis to the bones and recent diagnosis of metastasis to the brain came to the hospital with complaints of dysphagia. The patient was recently evaluated at [facility] and was told regarding her brainstem metastasis was deferred to have radiation therapy. Patient underwent radiation therapy. Elevated bilirubin levels and liver enzymes. Patient had attempted ERCP but scope could not be passed 20 cm beyond the esophagus. Her bilirubin level is still elevated. The patient underwent palliative paracentesis today and is planning for possible percutaneous biliary stent placement. General Surgery has been consulted for J-tube placement for nutrition. Otherwise the patient denied any complaints of chest pain. No worsening shortness of breath. No nausea or vomiting, abdominal pain. Otherwise, no acute overnight issues. Review of systems negative except for above. Current medications include Decadron, Lovenox, fluconazole, Dilaudid, ibuprofen, Ativan, Narcan, Zofran, Protonix, MiraLAX, sodium bicarbonate, and normal saline 200 mL per hour. PHYSICAL EXAMINATION: A 66-year-old female lying in the bed comfortably, awake, alert, oriented x3, appears to be no apparent distress. VITALS: Blood pressure is 126/79, pulse is 117, respirations 20, temperature afebrile, pulse ox 96% on room air. HEENT: Atraumatic, normocephalic. Neck is supple. No JVD. CVS: S1, S2 heard. No murmurs, no gallop. LUNGS: Bilateral air entry is present. Air entry bilateral basally. No wheezing. No crackles. Nonlabored breathing. ABDOMEN: Soft, distended. Bowel sounds are present. AIR MOTOR REPAIRER: Awake, alert, oriented x3. No focal deficit. EXTREMITIES: Bilateral lower extremities 2+ edema. Pules palpable bilaterally. No clubbing or cyanosis. PSYCHIATRIC: Cooperative. LABORATORY DATA: WBC 7.4, hemoglobin 10, platelets 177, MCV 109.7. Sodium 138, potassium 4.2, chloride 114, bicarb is 13, BUN 45, creatinine 1.7. Blood sugar is 209. Hypocalcemia with calcium level of 6.3. Total bilirubin is 8.4, AST is 107, ALT is 112, alkaline phosphatase 389, albumin 2.6. IMPRESSION: 1. Obstructive jaundice possibly from metastatic disease. Unable to perform ERCP guided with stent placement due to esophageal obstruction. GI planning for possible percutaneous biliary stent placement. Bilirubin level is 8.7 today. 2. Elevated liver enzymes. 3. Ascites, status post palliative paracentesis. 4. Acute pancreatitis likely secondary to obstructive/infiltrate in nature. 5. Lipase level normalized. 6. Dysphagia currently being evaluated for J-tube placement for nutrition. 7. Oral thrush currently on Diflucan. 8. Metastatic breast cancer with leptomeningeal involvement. 9. Left-sided facial droop likely secondary to brain metastasis 10. Hypocalcemia likely secondary to pancreatitis from infiltration. 11. Worsening leg swelling secondary to pleural effusion as well as hypoalbuminemia. 12. Mild to moderate protein calorie malnutrition with hypoalbuminemia with albumin of 2.7. DISCUSSION AND PLAN: A 66-year-old female who was admitted to the hospital with complaints of dysphagia. Will treat with gentle hydration at this time and will reduce the IV dose to 75 mL per hour due to worsening leg swelling and fluid overload. Will continue to follow bilirubin level. General Surgery is following for J-tube placement. Continue the current management and further recommendations based on the clinical course. Gastroenterology and Oncology are following this patient.
[2016-12-18] MEDS: FLUCONAZOLE IN NACL,ISO-OSM 200 MG in SALINE 1 100ML.BAG IVPB SCH (16:05)
--- NOTE | 2016-12-18 16:29 | P.PN ---
Subjective Patient is a 66-year-old female with medical history significant for advanced breast cancer with metastasis and biliary obstruction with symptoms of dysphagia and malnutrition. Previous attempt of ERCP unsuccessful. Denies nausea, vomiting, or abdominal pain. Afebrile. Objective - Vital Signs Vital signs: Vital Signs Temp 97.1 F L 12/18/16 15:00 Pulse 107 H 12/18/16 15:00 Resp 20 12/18/16 15:00 BP 141/79 12/18/16 15:00 Pulse Ox 95 12/18/16 15:00 Intake & Output 12/17/16 12/18/16 12/18/16 18:59 06:59 18:59 Intake Total 640 120 Balance 640 120 Weight 47.627 kg Intake: IV 640 Sodium Chloride 0.9% 1, 600 000 ml @ 75 mls/hr IV . [id number] [facility] Rx#:[id number] ns@10 40 Oral 120 Other: Voiding Method Bedside Commode Bedside Commode Bedside Commode # Voids 2 1 3 # Bowel Movements 1 - Exam GENERAL: Pt awake and alert, cathetic, in no acute distress. ABDOMEN: Soft, mild tenderness, mildly distended. NEUROLOGICAL: Pt alert and oriented. - Labs CBC & Chem 7: 12/17/16 05:55 12/17/16 05:55 Assessment and Plan Plan: Impression and plan: Malnutrition secondary to advanced malignancy. Possibly have patient evaluated at [facility] for percutaneous gastrostomy tube placed by radiology. Further recommendations per Dr. Alanis. The above impression and plan have been discussed and directed by Dr. Rizo. Jaja LARES acting as scribe for Carlo.
[2016-12-18] MEDS: ONDANSETRON 4 MG/2 ML VIAL IVP PRN (20:45)
[2016-12-18] MEDS: HYDROmorphone 1 MG/ML 1 ML SYRINGE IV PRN (20:46)
[2016-12-18] MEDS: POLYETHYLENE GLYCOL 3350 17 GM POWD.PACK PO SCH (20:58)
[2016-12-18] MEDS: LORazepam 2 MG/ML SYRINGE IV PRN (22:34)
[2016-12-19] MEDS: DEXAMETHASONE SOD PHOSPHATE 4 MG/ML 1 ML VIAL IV SCH ×4 (00:45→18:35)
[2016-12-19] MEDS: SALT AND SODA MOUTHWASH 1,000 ML PO SCH ×3 (00:45→17:06)
[2016-12-19] MEDS: SODIUM CHLORIDE 0.9% 1,000 ML IV SCH (05:23)
[2016-12-19] MEDS: HYDROmorphone 1 MG/ML 1 ML SYRINGE IV PRN ×2 (06:31→19:13)
[2016-12-19] MEDS: ONDANSETRON 4 MG/2 ML VIAL IVP PRN ×2 (06:32→19:14)
[2016-12-19] MEDS: SODIUM BICARBONATE TAB 650 MG TAB PO SCH (09:12)
[2016-12-19] MEDS: PANTOPRAZOLE 40 MG/10 ML VIAL IV SCH (09:29)
--- NOTE | 2016-12-19 10:12 | PN ---
DATE OF SERVICE: 12/18/2016 INTERVAL HISTORY: Ms. Chung is a 66-year-old female with history of breast cancer with metastasis to the bone and recent diagnosis of metastatic to the brain, came to the hospital with complaints of dysphagia. Patient was also found to have elevated bilirubin levels and liver enzymes. Patient attempted to have endoscopic retrograde cholangiopancreatography but scope could not be passed 20 cm beyond the esophagus. Her bilirubin level is still elevated. Otherwise, patient cannot tolerate any full diet at this time. Tolerating liquids only. General Surgery has been consulted for possible PEG tube placement, which could not be done and also endoscopy at this time. Otherwise, patient was recently evaluated at [facility] and was told regarding her brain tumor status and deferred to have radiation therapy. Today, I did discuss with Dr. Leary at [facility] to transfer her to their facility for possible PEG tube placement for nutrition. The patient was unable to transferred today due to bed availability at the [facility]. Otherwise, the patient denies any fever, chills. No acute overnight issues. Patient does have leg swelling, which is improved after reducing the IV fluids. Denied any complaints of chest pain. No abdominal pain. No acute overnight issues. Complete review of systems negative except as above. CURRENT MEDICATIONS: Reviewed. PHYSICAL EXAMINATION: A 66-year-old female lying in bed comfortably, awake, alert, oriented x3, appears to be in no apparent distress. VITALS: Blood pressure is 141/79, pulse is 107, respirations 20, temperature afebrile, pulse ox 90% on nasal cannula. HEENT: Atraumatic, normocephalic. Neck is supple. No JVD. CVS: S1, S2 heard. No murmurs, no gallop. LUNGS: Bilateral air entry is present. Decreased breath sounds basally. ABDOMEN: Soft. Epigastric tenderness positive, mild. Bowel sounds are present. OPERATIONS LEAD: Awake, alert, oriented x3. No focal deficit. Left-sided facial palsy droop. EXTREMITIES: No edema. Pulses palpable bilaterally. No clubbing or cyanosis. PSYCHIATRIC: Cooperative. LABORATORY DATA: Reviewed. IMPRESSION: 1. Obstructive jaundice possible metastatic disease. Stricture or stone cannot be ruled out. 2. Status post endoscopic retrograde cholangiopancreatography attempt and bili stent could not be placed. 3. Poor nutrition and decreased oral intake. PEG tube cannot be placed due to narrow esophagus. Possible transfer to [facility] for further evaluation. 4. Elevated liver enzymes. 5. Hyperbilirubinemia. 6. Ascites, status post palliative paracentesis. 7. Acute pancreatitis secondary to infiltrative/obstructive nature. Lipase level has normalized. 8. Oral thrush. Currently on Diflucan. 9. Metastatic breast cancer with leptomeningeal involvement. 10. Left-sided facial droop likely secondary to brain metastasis. 11. Hypocalcemia likely secondary to pancreatitis from infiltration. 12. Worsening leg swelling secondary to fluid load and hypoalbuminemia. 13. Moderate to severe protein calorie malnutrition with albumin level of 2.7. 14. The patient is FULL CODE at this time. DISCUSSION AND PLAN: Will continue the current management and continue with IV fluids and continue the liquid diet. Possible transfer to [facility] once bed is available. Further recommendations based on clinical course. Prognosis is poor. Further recommendations based on the clinical course.
--- NOTE | 2016-12-19 11:09 | P.PN ---
Progress Note - Text The patient remains stable. She apparently is being transferred to [facility] oncology service. Her abdomen soft. Metastatic breast cancer. Patient will be transferred back to [facility] for possible feeding tube
[2016-12-19 14:53] VITALS: BMI 25.9
[2016-12-19] MEDS: FLUCONAZOLE IN NACL,ISO-OSM 200 MG in SALINE 1 100ML.BAG IVPB SCH (17:04)
[2016-12-19 17:17] LABS: Ionized Calcium 3.8 mg/dL (4.5-5.3)
[2016-12-19 17:25] LABS: Magnesium 2.1 mg/dL (1.6-2.3); Phosphorous 4.4 mg/dL (2.5-4.5); Potassium 5.2 mmol/L (3.5-5.1); Total Bilirubin 11.9 mg/dL (0.2-1.3); Total Protein 5.2 g/dL (6.3-8.2)
[2016-12-19] MEDS ORDERED: CALCIUM GLUCONATE 1,000 MG in SODIUM CHLORIDE 0.9% 100 ML IVPB ONE (19:00)
[2016-12-19] MEDS ORDERED: MVI, ADULT NO.4 WITH VIT K 10 ML, TRACE (CONC-1ML/DOSE) 1 ML in AMINO ACID 5%-D25W+LYTE... IV ONE ×3 (19:00)
[2016-12-20] MEDS: HYDROmorphone 1 MG/ML 1 ML SYRINGE IV PRN ×4 (02:46→20:25)
[2016-12-20] MEDS: POLYETHYLENE GLYCOL 3350 17 GM POWD.PACK PO SCH ×2 (02:51→20:12)
[2016-12-20] MEDS: SODIUM BICARBONATE TAB 650 MG TAB PO SCH ×3 (02:52→20:14)
[2016-12-20] MEDS: DEXAMETHASONE SOD PHOSPHATE 4 MG/ML 1 ML VIAL IV SCH ×4 (02:53→18:01)
[2016-12-20] MEDS: SALT AND SODA MOUTHWASH 1,000 ML PO SCH ×3 (02:53→16:41)
[2016-12-20] MEDS: SODIUM CHLORIDE 0.9% 1,000 ML IV SCH ×3 (03:06→20:15)
[2016-12-20 06:54] LABS: Potassium 5.4 mmol/L (3.5-5.1); Total Bilirubin 11.6 mg/dL (0.2-1.3)
[2016-12-20 07:06] LABS: Glucose,Whole Blood 278 mg/dL (75-99)
[2016-12-20] MEDS: INSULIN LISPRO (humaLOG) 300 UNIT/3 ML VIAL SQ SCH ×3 (07:54→18:05)
[2016-12-20 08:22] LABS: Magnesium 2.1 mg/dL (1.6-2.3); Phosphorous 4.9 mg/dL (2.5-4.5)
[2016-12-20] MEDS: PANTOPRAZOLE 40 MG/10 ML VIAL IV SCH (08:32)
--- NOTE | 2016-12-20 11:52 | P.PN ---
Subjective Principal diagnosis: Metastatic breast cancer. Dysphagia The patient's oral intake has progressively declined. She remains quite weak. She is awaiting transfer to the [facility]. Objective - Vital Signs Vital signs: Vital Signs Temp 96.9 F L 12/20/16 07:00 Pulse 117 H 12/20/16 07:00 Resp 20 12/20/16 07:00 BP 149/93 12/20/16 07:00 Pulse Ox 95 12/20/16 07:00 Intake & Output 12/19/16 12/20/16 12/20/16 18:59 06:59 18:59 Intake Total 600 1370 Output Total 100 Balance 600 1270 Weight 64.5 kg 66.4 kg Intake: IV 600 750 Sodium Chloride 0.9% 1, 600 750 000 ml @ 75 mls/hr IV . [id number] [facility] Rx#:[id number] Intake, IV Titration 220 Amount Calcium Gluconate 1,000 100 mg In Sodium Chloride 0.9 % 100 ml @ 100 mls/hr IVPB ONCE ONE Rx#: [id number] Mvi, Adult No.4 with Vit 120 K 10 ml Trace (Conc-1Ml/ Dose) 1 ml In Amino Acid 5%-D25w+Lytes*E* 1,000 ml @ 50 mls/hr IV .[id number] [facility] Rx#:[id number] Oral 400 Output: Urine 100 Other: Voiding Method Bedside Commode Bedside Commode Bedside Commode # Voids 5 - Constitutional Constitutional Comment(s): Weak and fatigued - EENT Eyes: Present: EOMI, PERRLA, ptosis ENT: Present: hearing grossly normal, normal oropharynx - Respiratory Respiratory: bilateral: diminished - Cardiovascular Rhythm: regular Heart sounds: normal: S1, S2 - Gastrointestinal General gastrointestinal: Present: decreased bowel sounds, soft - Neurologic Neurologic: Present: focal deficits (Left-sided ptosis) - Musculoskeletal Musculoskeletal: Present: generalized weakness - Psychiatric Psychiatric: Present: A&O x's 3 - Labs CBC & Chem 7: 12/17/16 05:55 12/20/16 06:37 Labs: Abnormal Lab Results - Last 24 Hours (Table) 12/19/16 12/20/16 12/20/16 Range/Units 17:00 06:37 06:37 Potassium 5.2 H 5.4 H (3.5-5.1) mmol/L Chloride 118 H 117 H (98-107) mmol/L Carbon Dioxide 10 L* 12 L (22-30) mmol/L BUN 54 H 58 H (7-17) mg/dL Creatinine 1.80 H 1.90 H (0.52-1.04) mg/dL Glucose 184 H 288 H (74-99) mg/dL POC Glucose (mg/dL) (75-99) mg/dL Calcium 6.0 L* 6.0 L* (8.4-10.2) mg/dL Ionized Calcium Renny 3.8 L (4.5-5.3) mg/dL Phosphorus 4.9 H (2.5-4.5) mg/dL Total Bilirubin 11.9 H 11.6 H (0.2-1.3) mg/dL AST 135 H 117 H (14-36) U/L ALT 162 H 155 H (9-52) U/L Alkaline Phosphatase 490 H 477 H (38-126) U/L Total Protein 5.2 L 5.0 L (6.3-8.2) g/dL Albumin 2.6 L 2.5 L (3.5-5.0) g/dL Triglycerides 703 H (<150) mg/dL 12/20/16 Range/Units 07:02 Potassium (3.5-5.1) mmol/L Chloride (98-107) mmol/L Carbon Dioxide (22-30) mmol/L BUN (7-17) mg/dL Creatinine (0.52-1.04) mg/dL Glucose (74-99) mg/dL POC Glucose (mg/dL) 278 H (75-99) mg/dL Calcium (8.4-10.2) mg/dL Ionized Calcium Renny (4.5-5.3) mg/dL Phosphorus (2.5-4.5) mg/dL Total Bilirubin (0.2-1.3) mg/dL AST (14-36) U/L ALT (9-52) U/L Alkaline Phosphatase (38-126) U/L Total Protein (6.3-8.2) g/dL Albumin (3.5-5.0) g/dL Triglycerides (<150) mg/dL Assessment and Plan (1) Breast cancer Status: Acute (2) Dysphagia Narrative/Plan: Case was discussed with the gastric oncology and surgery. The patient has obstruction fairly high up in the esophagus that appears to be due to extrinsic compression. The scope could not be passed beyond that. Therefore endoscopic placement of a PEG tube was anyway not possible. As discussed with Dr. Houser, this is felt to be contraindicated due to the presence of ascites. The case was therefore discussed with surgery regarding possibility of an open G-tube placement. Dr. Alanis did discuss the same with the patient, who did not want to have the procedure here after assessment of the risks involved. Therefore transferred to the [facility] was requested. This is still pending bed availability. In the meantime, the patient's oral intake has steadily declined. I will therefore start the patient on TPN. Status: Acute (3) Obstructive jaundice Status: Acute
[2016-12-20 12:22] LABS: Glucose,Whole Blood 327 mg/dL (75-99)
[2016-12-20 13:28] LABS: Hemoglobin A1C 5.6 % (4.2-6.1)
[2016-12-20] MEDS: FLUCONAZOLE IN NACL,ISO-OSM 200 MG in SALINE 1 100ML.BAG IVPB SCH (16:41)
[2016-12-20 17:14] LABS: Glucose,Whole Blood 239 mg/dL (75-99)
[2016-12-20] MEDS: ENOXAPARIN 40 MG/0.4 ML SYRINGE SQ SCH (18:00)
[2016-12-20] MEDS ORDERED: MVI, ADULT NO.4 WITH VIT K 10 ML, TRACE (CONC-1ML/DOSE) 1 ML in AMINO ACID 5%-D25W+LYTE... IV SCH ×3 (19:00)
[2016-12-20] MEDS: ONDANSETRON 4 MG/2 ML VIAL IVP PRN (20:25)
[2016-12-20] MEDS: LORazepam 2 MG/ML SYRINGE IV PRN (22:34)
[2016-12-21 00:08] LABS: Glucose,Whole Blood 247 mg/dL (75-99)
[2016-12-21 00:09] VITALS: RESP 16
[2016-12-21] MEDS: DEXAMETHASONE SOD PHOSPHATE 4 MG/ML 1 ML VIAL IV SCH ×4 (00:10→17:45)
[2016-12-21] MEDS: HYDROmorphone 1 MG/ML 1 ML SYRINGE IV PRN ×3 (00:10→19:47)
[2016-12-21] MEDS: SALT AND SODA MOUTHWASH 1,000 ML PO SCH ×3 (00:10→17:46)
[2016-12-21] MEDS: INSULIN LISPRO (humaLOG) 300 UNIT/3 ML VIAL SQ SCH ×4 (01:46→19:52)
[2016-12-21] MEDS ORDERED: SODIUM ACETATE IV SCH ×7 (03:00)
[2016-12-21] MEDS ORDERED: [UNRECOGNIZED DRUG - OTHER] IV SCH ×7 (03:00)
[2016-12-21] MEDS ORDERED: POTASSIUM CHLORIDE IV SCH ×7 (03:00)
[2016-12-21] MEDS ORDERED: MAGNESIUM SULFATE IV SCH ×7 (03:00)
[2016-12-21 06:34] LABS: Glucose,Whole Blood 259 mg/dL (75-99)
[2016-12-21 06:40] LABS: Magnesium 2.3 mg/dL (1.6-2.3); Phosphorous 5.2 mg/dL (2.5-4.5); Potassium 5.7 mmol/L (3.5-5.1); Total Bilirubin 11.1 mg/dL (0.2-1.3); Total Protein 5.2 g/dL (6.3-8.2)
[2016-12-21 06:57] LABS: Calcium 6.1 mg/dL (8.4-10.2)
[2016-12-21] MEDS: SODIUM BICARBONATE TAB 650 MG TAB PO SCH ×2 (09:18→19:50)
[2016-12-21] MEDS: PANTOPRAZOLE 40 MG/10 ML VIAL IV SCH (10:33)
[2016-12-21] MEDS: ENOXAPARIN 40 MG/0.4 ML SYRINGE SQ SCH (10:35)
[2016-12-21] MEDS ORDERED: [UNRECOGNIZED DRUG - REMARK] IV SCH ×6 (11:00)
[2016-12-21] MEDS ORDERED: CALCIUM GLUCONATE 1,000 MG in SODIUM CHLORIDE 0.9% 100 ML IVPB ONE (11:00)
[2016-12-21 11:57] LABS: Glucose,Whole Blood 175 mg/dL (75-99)
--- NOTE | 2016-12-21 14:30 | PN ---
DATE OF SERVICE: 12/19/2016 INTERVAL HISTORY: Ms. Chung is a 66 -year-old female with known history of breast cancer, metastasis to bone and ( ), came to the hospital with dysphagia and poor oral intake and found to have hyperbilirubinemia. General surgery has been consulted for possible PEG tube placement which could not be done due to narrow esophagus and high risk for surgery. Otherwise I did talk to the [facility] for possible transfer and due to bed availability, patient is not being transferred to [facility]. Otherwise, the patient has been started on TPN today. Patient denied any complaints of chest pain or short of breath. Leg swelling is stable, tolerating liquids at this time. No fever. No chills. No acute overnight issues. Complete review of systems negative except as above. CURRENT MEDICATIONS: Reviewed. PHYSICAL EXAMINATION: A 66 -year-old female lying in bed, awake, alert, oriented, x3. Appears to be in no apparent distress. VITALS: Blood pressure 152/87, pulse is 109, respirations 18, temperature afebrile, pulse ox 95% on room air. HEENT: Atraumatic, normocephalic. Neck is supple. No JVD. EYES: Extraocular movements intact. The patient does have icterus and eye lid discoloration on the skin as well. CARDIOVASCULAR: No chest pain or shortness of breath. S1, S2 heard. No murmurs, no gallop. LUNGS: Bilateral air entry is present. No wheezing, no crackles. ABDOMEN: Soft, nontender, bowel sounds present. CENTRAL NERVOUS SYSTEM: Awake, alert and oriented times three. No focal deficits. EXTREMITIES: Bilateral lower extremity 1+ edema. Pulses palpable bilaterally. No clubbing or cyanosis. PSYCHIATRIC: Cooperative. LABORATORY DATA: Reviewed. IMPRESSION: 1. Obstructive jaundice, possible ( ), stricture or stone cannot be ruled out. ( ) has been attempted for possible biliary stent placement which could not be done at this time. 2. Poor nutrition and decreased oral intake, PEG tube cannot be placed due to narrow esophagus. Possible transfer to [facility] for further elevation. Patient will be started on TPN today. 3. Elevated liver enzymes. 4. Hyperbilirubinemia. 5. Ascites status post ( ) paracentesis. 6. Acute pancreatitis secondary to ( ) obstructive in nature. ( ) Resolved now. Lipase normalized. No abdominal pain. 7. Oral thrush currently on Diflucan. 8. Metastatic breast cancer with ( ) involvement. 9. Left-sided facial droop likely secondary to brain ( ). 10. Hypocalcemia. 11. Worsening leg swelling secondary to fluid overload and hypoalbuminemia, stable now. 12. Moderate to severe protein calorie malnutrition, with albumin 2.7. 13. FULL CODE. DISCUSSION AND PLAN: Continue current management with Lasix and spironolactone and continue with the liquid diet, the patient will be started on TPN today. We will continue to monitor closely. Anticipate transfer to [facility] possibly Wednesday or Wednesday. Prognosis poor.
--- NOTE | 2016-12-21 15:27 | PN ---
DATE OF SERVICE: 12/20/2016 INTERVAL HISTORY: Ms. Chung is a 66 -year-old female with known history of metastatic breast cancer with mets to bones and brain. Admitted to the hospital with complaints of dysphagia. Currently the patient was started on TPN . PEG tube could not be placed due to high risk for surgery. The patient is possible transfer to [facility] for further evaluation , possibly early next week. Otherwise, the patient still has hyperbilirubinemia. Denied any complaints of abdominal pain. Lipase level is normalized. No acute overnight issues. No complaints of chest pain or short of breath. No headache or dizziness or lightheadedness. Complete review of systems negative except as above. CURRENT MEDICATIONS: Reviewed. PHYSICAL EXAMINATION: 66 -year-old female lying in bed comfortably, awake, alert and oriented times three appears to be in no apparent distress. VITALS: Blood pressure is 148/103, pulse is 116, respirations 16, temperature afebrile, pulse ox 95% on 2 L nasal cannula. HEENT: Atraumatic, normocephalic. NECK: Supple. No jugular venous distention. CVS: S1, S2 heard. No murmurs, no gallop. LUNGS: Bilateral air entry is present. No wheezing. No crackles. ABDOMEN: Soft, nontender, bowel sounds present. CENTRAL NERVOUS SYSTEM: Awake, alert and oriented times three. No focal deficits. EXTREMITIES: No edema. Pulses palpable bilaterally. ( ) the patient does have icterus and ( ) auscultation. PSYCHIATRIC: Cooperative. LABORATORY DATA: Reviewed. WBC ( ) Sodium 140, potassium 5.4, chloride 117, bicarb is 12. BUN 58, creatinine 1.9, calcium 6.0, phosphorus of 4.9. Magnesium 2.1. AST is 117, ALT 155. Alkaline phosphatase 477, albumin 2.5. IMPRESSION: 1. Obstructive jaundice, possible ( ) stricture or stone cannot be ruled out. Status post ERCP attempt at biliary stent could not be placed due to scope cannot be passed ( ) esophagus. 2. Poor ( ) decreased oral intake. High risk of percutaneous endoscopic gastrostomy feeding tube placement and positive ( ) history for further evaluation. We will continue TPN for now. 3. Elevated liver enzymes. 4. Hyperbilirubinemia. 5. Acute pancreatitis on admission. 6. Ascites, status post paracentesis. 7. Oral thrush. Continue the Diflucan. 8. Metastatic breast cancer with ( ) involvement. 9. Left-sided facial droop likely secondary to brain metastasis. 10. Hypocalcemia. Likely secondary to pancreatitis and ( ) 11. Worsening leg swelling secondary to fluid overload. 12. IV fluid ( ) . 13. Hypoalbuminemia. 14. Moderate to severe protein calorie malnutrition with albumin level of 2.7. 15. The patient is FULL CODE. DISCUSSION AND PLAN: Continue current management. Continue with TPN and continue to monitor closely. Further recommendations based on the clinical course. Anticipate transfer to [facility] early next week.
[2016-12-21 17:45] LABS: Glucose,Whole Blood 211 mg/dL (75-99)
[2016-12-21] MEDS: FLUCONAZOLE IN NACL,ISO-OSM 200 MG in SALINE 1 100ML.BAG IVPB SCH (17:45)
[2016-12-21] MEDS: POLYETHYLENE GLYCOL 3350 17 GM POWD.PACK PO SCH (19:50)
[2016-12-21 19:53] LABS: Glucose,Whole Blood 185 mg/dL (75-99)
[2016-12-21 21:05] VITALS: BP 128/72; PULSE 122; TEMP 97.4
[2016-12-22] MEDS ORDERED: INSULIN LISPRO (humaLOG) 300 UNIT/3 ML VIAL SQ SCH
[2016-12-22] MEDS ORDERED: [UNRECOGNIZED DRUG - REMARK] IV SCH ×6 (03:00)
[2016-12-22] MEDS ORDERED: ENOXAPARIN 30 MG/0.3 ML SYRINGE SQ SCH (09:00)
--- NOTE | 2016-12-22 21:32 | DS ---
DATE OF ADMISSION: 12/09/2016 DATE OF DISCHARGE: 12/21/2016 DISCHARGE DIAGNOSES: 1. Dysphagia due to esophageal narrowing and poor oral intake. Percutaneous endoscopic gastrostomy tube cannot be placed endoscopically as per Surgery recommendations. Patient was started on total parenteral nutrition. 2. Obstructive jaundice. Possible stricture or stone cannot be ruled out, status post endoscopic retrograde cholangiopancreatography attempt prior to biliary stent could not be placed due to scope could not be passed beyond 20 cm from the esophagus. 3. Elevated liver enzymes. 4. Hyperbilirubinemia. 5. Acute pancreatitis on admission, resolved. 6. Ascites, status post palliative paracentesis. 7. Oral thrush, continued on Diflucan. 8. Metastatic breast cancer with bone involvement and brain metastasis. 9. Left-sided facial droop likely secondary to brain metastasis. 10. Hypocalcemia likely secondary to pancreatitis. 11. Worsening leg swelling secondary to fluid overload. IV fluids have been changed to 75 mL/h. 12. Hypoalbuminemia. 13. Moderate to severe protein-calorie malnutrition with albumin level of 2.7. 14. THIS PATIENT IS FULL CODE. HOSPITAL COURSE: Ms. Chung is a 66-year-old female with known history of metastatic breast cancer with leptomeningeal involvement and bone involvement, was admitted to the hospital with complaints of dysphagia and poor oral intake. Patient is very dehydrated and an attempt to place PEG tube cannot be done due to esophageal narrowing and patient cannot tolerate surgical exploration as per Surgery. Otherwise, patient was also having hyperbilirubinemia. An attempt to ERCP with biliary stent placement was not successful, as scope cannot be passed 20 cm beyond the esophagus. Otherwise, the patient is still having dysphagia and unable to tolerate p.o. diet, currently tolerating liquid diet only. Patient was placed on TPN while in the hospital since yesterday. The patient may require a percutaneous biliary stent placement and a possible PEG tube placement with open laparotomy, since the patient is having worsening the bilirubin and dysphagia and for the placement of biliary stent and PEG tube placement, the patient may need facility transfer. I did discuss with Nickolas Suazo, who will accept the patient to their care for further management. Family is agreeable she be transferred to [facility] at this time. Recently I did try to transfer her to [facility]. Patient was having all the workup and recent treatment and I would told that they could not accept the patient now, so the patient will be transferred to [facility] in stable condition. DISCHARGE PHYSICAL EXAMINATION: A 66-year-old female lying in the bed; comfortable, awake, alert and oriented x3, appears to be in no apparent distress. VITALS: Blood pressure is 128/72, pulse is 103, respiratory rate 16, temperature afebrile, pulse ox 92% on room air. HEENT: Atraumatic, normocephalic. CVS: S1, S2 heard. LUNGS: Bilateral air entry is good. Diminished breath sounds bi-basally. Abdomen soft, nontender. Bowel sounds are present. ADVERTISING JOB TITLES: Awake, alert, oriented, x3. No focal deficits. The patient does have left-sided facial droop. EXTREMITIES: Bilateral 2+ edema. Pulses palpable at the ( ). PSYCHIATRIC: Cooperative. LABORATORY DATA: Reviewed. Calcium 6.1. Bilirubin 11.1. Liver enzymes are elevated. Albumin 2.6. Potassium 3.7, chloride 117, bicarb is 12, BUN 65, creatinine 2.1. Discharge med reconciliation has been done. Patient will be transferred to [facility] in stable condition. Follow with primary care physician after discharge. TIME TAKEN: More than 35 minutes, including 80 minutes ( ) the patient and coordinating care.
== END 2016-12-21 22:01 | disposition short-term general hospital (02) | DRG 438 ==
LOC: EC 12:24 → 5ONC 14:47
PROVIDERS: ADMIT Internal Medicine; ATTEND Internal Medicine
PROC: 0DJ08ZZ Inspection of Upper Intestinal Tract, Via Natural or Artificial Opening Endoscopic (ICD-10-PCS; principal; 2016-12-16 13:10)
PROC: 0W9G3ZZ Drainage of Peritoneal Cavity, Percutaneous Approach (ICD-10-PCS; 2016-12-17)
PROC: 3E0436Z Introduction of Nutritional Substance into Central Vein, Percutaneous Approach (ICD-10-PCS; 2016-12-21)
DX: K85.90 Acute pancreatitis without necrosis or infection, unspecified (principal); E43 Unspecified severe protein-calorie malnutrition; J90 Pleural effusion, not elsewhere classified; N17.9 Acute kidney failure, unspecified; K83.1 Obstruction of bile duct; B37.0 Candidal stomatitis; R18.8 Other ascites; C79.31 Secondary malignant neoplasm of brain; B37.81 Candidal esophagitis; C79.51 Secondary malignant neoplasm of bone; E87.2 Acidosis; N13.39 Other hydronephrosis; K22.2 Esophageal obstruction; R13.19 Other dysphagia; E83.51 Hypocalcemia; E86.0 Dehydration; E87.70 Fluid overload, unspecified; M81.0 Age-related osteoporosis without current pathological fracture; K86.89 Other specified diseases of pancreas; K20.9 Esophagitis, unspecified; R74.0 Nonspecific elevation of levels of transaminase and lactic acid dehydrogenase [LDH]; R11.2 Nausea with vomiting, unspecified; R00.0 Tachycardia, unspecified; M85.88 Other specified disorders of bone density and structure, other site; R29.810 Facial weakness; R53.1 Weakness; Z90.12 Acquired absence of left breast and nipple; Z82.79 Family history of other congenital malformations, deformations and chromosomal abnormalities; Z82.49 Family history of ischemic heart disease and other diseases of the circulatory system; Z92.21 Personal history of antineoplastic chemotherapy; Z92.3 Personal history of irradiation; Z17.0 Estrogen receptor positive status [ER+]; Z87.442 Personal history of urinary calculi; Z87.440 Personal history of urinary (tract) infections; Z68.27 Body mass index [BMI] 27.0-27.9, adult; Z86.19 Personal history of other infectious and parasitic diseases; Z88.5 Allergy status to narcotic agent; Z88.2 Allergy status to sulfonamides; Z88.8 Allergy status to other drugs, medicaments and biological substances; Z91.012 Allergy to eggs; Z79.52 Long term (current) use of systemic steroids; Z79.899 Other long term (current) drug therapy; Z95.828 Presence of other vascular implants and grafts; Z85.3 Personal history of malignant neoplasm of breast
CPT/HCPCS: 36415; 43200; 49083; 74176; 74181; 77280; 77290; 77295; 77300; 77331; 77333; 77334; 77336; 77387; 77412; 77417; 77470; 80048; 80053; 80074; 81001; 82150; 82248; 82310; 82330; 83036; 83690; 83735; 83970; 84100; 84478; 85025; 85027; 85610; 85730; 93005; 96361; 96374; 99153; 99285